=== PATIENT | male | born 1965 | race Caucasian/White ===

== ENCOUNTER 2017-09-02 22:47 | Inpatient (IN) | payer MEDICARE, BC ==
--- NOTE | ~2017-09-02 | HEMODYNAMI ---
PATIENT:MINO CASTRO MEDICAL RECORD: [id number] : 65 LOCATION:[facility] ADMISSION DATE: 09/02/17 Generatedon:09/03/20170:04 Patient name: MINO CASTRO Patient #: [id number] SSN: : 1965 Date of study: 09/02/2017 Page: Of Hemodynamic Procedure Report Patient Data Patient Demographics First Name: MINO Gender: Male Last Name: GLORIA : 1965 Patient #: [id number] Age: 51 year(s) Race: Unknown Additional ID: [id number] Contact details [address]: [address] [place] [address] State: [place] City: [place] Zip code: [address] Admission Admission Data Admission Date: 09/02/2017 Admission Time: 22:47 Admit Source: Emergency department Height (in.): 71 BSA: 1.84 (m2) Height (cm.): 180.34 BMI: 20.22 (kg/m2) Weight (lbs.): 145 Weight (kg.): 65.77 Procedure Procedure Types Cath Procedure Diagnostic Procedure LHC LHC w/Coronaries PCI Procedure AMI-BMS/SAULO Initial Miscellaneous Procedures Moderate Sedation up to 30 minutes Procedure Description Procedure Date Procedure Date: 09/02/2017 Procedure Start Time: 23:28 Procedure End Time: 0:04 Procedure Staff Name Function Milton Leonardo MD Performing Physician Terry Dotson RT Scrub Kurt Weinberg RN Nurse Ria Ellsworth RT Monitor Procedure Data Cath Procedure Fluoroscopy Diagnostic fluoroscopy Total fluoroscopy Time: 5.5 time: 5.5 min min Diagnostic fluoroscopy Total fluoroscopy dose: 679 dose: 679 mGy mGy Contrast Material Contrast Material Type Amount (ml) Isovue 300 100 Entry Location Entry Primary Successful Side Size Upsize Upsize Entry Closure Succes sful Closure Location (Fr) 1 (Fr) 2 (Fr) Remarks Device Remarks Femoral Right 6 Fr Exoseal artery Short Estimated blood loss: 5 ml Diagnostic catheters Device Type Used For End Catheter Placement Cordis 5Fr JL 4.0 Left Coronary Catheter (MP) Angiography Cordis 5Fr 3DRC Catheter Right Coronary (MP) Angiography Cordis 5Fr Pigtail LV Angiography Catheter (MP) Procedure Complications No complications Procedure Medications Medication Administration Route Dosage Oxygen NC 2 l/min Heparin Flush Bag added to field 2 bags (1000units/500ml NS) 0.9% NaCl I.V. 100 ml/hr Fentanyl I.V. 50 mcg Versed I.V. 1 mg Versed I.V. 1 mg Heparin Bolus I.V. 5000 units Fentanyl I.V. 50 mcg Integrilin (Bolus I.V. 6.2 ml 2mg/ml) Integrilin Drip I.V. drip 10.9 ml/hr (75mg/100ml) Integrilin (Bolus wasted 3.8 ml 2mg/ml) Hemodynamics Rest BSA: 1.84 (m2) O2 Consumption: Estimated: 225.77 (ml/min) O2 Consumption indexed : Estimated:122.7 (ml/min/m) Heart Rate: 79 (bpm) Pressure Samples Time Site Value (mmHg) Purpose Heart Use Rate(bpm) 23:51 LV 92/3,17 Snapshot 78 23:51 AO 122/75(98) Pullback 93 23:51 LV 116/14,16 Pullback 93 Gradients Valve Time Site 1 Site 2 Mean SEP/DFP Peak To Heart Use (mmHg) (sec/min) Peak Rate (mmHg) (bpm) Aortic 23:51 LV AO 0 12 0 93 116/14,16 122/75(98) Calculations Valve P-P Mean Valve Index Valve Source Name Gradient Area Flow (cm2) Aortic 0 0 0 0 Snapshots Pre Cath Intra NCS Post Cath Vital Signs Time Heart Resp SPO2 etCO2 NIBP (mmHg) Rhythm Pain Sedation Rate (ipm) (%) (mmHg) Status Level (bpm) 23:21:23 87 20 100 0 157/103(133) NSR 0 (11) 10(A) , No pain 23:25:59 94 20 98 0 149/101(128) NSR 0 (11) 10(A) , No pain 23:30:40 87 18 100 0 152/99(118) NSR 0 (11) 10(A) , No pain 23:35:21 91 17 100 0 147/99(125) NSR 0 (11) 10(A) , No pain 23:40:01 90 23 99 0 148/93(113) NSR 0 (11) 10(A) , No pain 23:44:40 93 21 98 0 139/97(112) NSR 0 (11) 10(A) , No pain 23:49:16 88 22 98 0 130/88(104) NSR 0 (11) 10(A) , No pain 23:53:53 91 20 99 0 132/90(104) NSR 0 (11) 10(A) , No pain 23:58:31 93 23 99 0 125/83(103) NSR 0 (11) 10(A) , No pain 0:03:08 93 20 99 0 126/89(105) NSR 0 (11) 10(A) , No pain Medications Time Medication Route Dose Verified Delivered Reason Notes Effectiveness by by 23:21:10 Oxygen NC 2 Milton Kurt Per physician l/min Malissa Weinberg RN, MD 23:21:21 Heparin Flush added 2 Milton Kurt used for Bag to bags Malissa Weinberg RN procedure (1000units/500ml field NS) 23:22:21 0.9% NaCl I.V. 100 Milton Kurt used for ml/hr Malissa Weinberg RN procedure MD 23:22:32 Fentanyl I.V. 50 Milton Kurt for sedation mcg Malissa Weinberg RN, MD 23:22:40 Versed I.V. 1 mg Milton Kurt for sedation Malissa Weinberg RN, MD 23:30:25 Versed I.V. 1 mg Milton Kurt for sedation Malissa Weinberg RN, MD 23:30:37 Heparin Bolus I.V. 5000 Milton Kurt for units Malissa Weinberg RN anticoagulation 23:32:33 Fentanyl I.V. 50 Milton Kurt for sedation mcg Malissa Weinberg RN, MD 23:35:47 Integrilin I.V. 6.2 Milton Kurt for (Bolus 2mg/ml) ml Malissa Weinberg RN anticoagulation 23:45:08 Integrilin Drip I.V. 10.9 Milton Kurt for (75mg/100ml) drip ml/hr Malissa Weinberg RN anticoagulation 23:51:32 Integrilin wasted 3.8 Milton Kurt for (Bolus 2mg/ml) ml Malissa Weinberg RN anticoagulation Procedure Log Time Note 23:11:35 Informed consent obtained and on chart 23:11:39 Admit Source: Emergency department 23:11:58 Kurt Weinberg RN sent for patient. Start room use. 23:12:02 Time tracking: Call back 23:12:07 Plan of Care:Hemodynamics will remain stable., Cardiac rhythm will remain stable., Comfort level will be maintained., Respiratory function will remain adequate., Patient/ family verbilizes understanding of procedure., Procedure tolerated without complication., Recovers from procedure without complications.. 23:19:56 Patient received from ED to CCL 1 Alert and oriented. Tansferred to table in Supine position. 23:19:57 Vital chart was started 23:19:58 Warm blankets applied, and natalie hugger turned on for patient comfort. 23:19:59 Correct patient and procedure confirmed by team. 23:19:59 ECG and BP/O2 sat monitors applied to patient. 23:20:02 Rhythm: unchanged. 23:20:04 Full Disclosure recording started 23:20:07 H&P Date Dictated: 09/02/2017 Emergent; H&P N/A. 23:20:09 Pre-procedure instructions explained to patient. 23:20:09 Pre-op teaching completed and patient verbalized understanding. 23:20:10 Family in waiting room. 23:20:12 Patient NPO since Midnight. 23:20:19 Is the patient allergic to Iodine/contrast media? No. 23:20:26 Final Timeout: patient, procedure, and site verified with staff and physician. All members of the team are in agreement. 23:20:27 Right groin site verified by team. 23:20:30 Physical assessment completed. ASA score P 2 - A patient with mild systemic disease as per Milton Leonardo MD. 23:20:35 Sedation plan: IV Moderate Sedation Versed, Fentanyl 23:21:10 Oxygen 2 l/min NC was administered by Kurt Weinberg RN; Per physician; 23:21:21 Heparin Flush Bag (1000units/500ml NS) 2 bags added to field was administered by Kurt Weinberg RN; used for procedure; 23:22:21 0.9% NaCl 100 ml/hr I.V. was administered by Kurt Weinberg RN; used for procedure; 23:22:32 Fentanyl 50 mcg I.V. was administered by Kurt Weinberg RN; for sedation; 23:22:40 Versed 1 mg I.V. was administered by Kurt Weinberg RN; for sedation; 23:23:22 Baseline sample Acquired. 23:23:29 Patient diabetic? Yes. 23:23:30 If diabetic: On Metformin? Yes 23:23:32 If on Metformin: Last Dose? 08/31/2017 23:23:35 Is patient on blood thinner?Yes 23:23:37 ACC The patient was administered the following blood thiners within the last 24 hours: ACCPlavix 23:23:41 Previous problem with sedation/anesthesia? No ? 23:23:42 Snore? Yes 23:23:43 Sleep apnea? No 23:23:43 Deviated septum? No 23:23:44 Opens mouth fully? Yes 23:23:45 Sticks out tongue? Yes 23:23:46 Airway obstruction? No ? 23:23:48 Dentures? No ? 23:23:50 Pre procedure: right dorsailis pedis pulse 2+ Normal; easily identifiable; not easily obliterated 23:23:58 Patient pain scale 10/10 Chest. 23:24:04 Lab results completed and on chart. 23:24:07 Right groin area was prepped with chlora-prep and draped in sterile fashion 23:24:08 Alarms reviewed by R. N. 23:24:08 Sharps counted by scrub and verified by R.N. 23:24:13 Acist Syringe opened to sterile field. 23:24:13 Bag Decanter opened to sterile field. 23:24:14 Medline Cath Pack opened to sterile field. 23:24:16 St Jose 260cm J .035 wire opened to sterile field. 23:24:17 Acist Hand Control opened to sterile field. 23:24:17 Acist Manifold opened to sterile field. 23:24:18 Tegaderm 4 x 4 opened to sterile field. 23:24:39 Use device set Multipack Set 23:24:40 Diagnostic Infinity 5Fr Multipack catheter opened to sterile field. 23:28:30 Procedure started. 23:28:32 Local anesthetic to right femoral artery with Lidocaine 2% by Milton Leonardo MD.INITIAL ACCESS ONLY 23:28:34 Access obtained with 4Fr micropunture. 23:28:41 A 6 Fr Short sheath was inserted into the Right Femoral artery 23:29:31 A Cordis 5Fr JL 4.0 Catheter (MP) was advanced over the wire and used for Left Coronary Angiography. 23:30:25 Versed 1 mg I.V. was administered by Kurt Weinberg RN; for sedation; 23:30:37 Heparin Bolus 5000 units I.V. was administered by Kurt Weinberg RN; for anticoagulation; 23:32:06 Patient Height : 71 inches 23:32:08 Patient Weight : 145 lbs 23:32:17 Catheter removed. 23:32:33 Fentanyl 50 mcg I.V. was administered by Kurt Weinberg RN; for sedation; 23:33:04 A Cordis 5Fr 3DRC Catheter (MP) was advanced over the wire and used for Right Coronary Angiography. 23:33:18 Catheter removed. 23:35:02 Copilot Bleedback Control Valve opened to sterile field. 23:35:47 Integrilin (Bolus 2mg/ml) 6.2 ml I.V. was administered by Kurt Weinberg RN; for anticoagulation; 23:36:28 Medtronic Launcher 6Fr AR 1.0 guide catheter opened to sterile field. 23:36:36 6 Fr AR 1.0 guide catheter was inserted over the wire 23:37:09 CHOICE PT ES wire advanced. 23:39:36 Inflation number: 1 A Euphora 2.0 x 20 Balloon was prepped and advanced across the Mid RCA, then inflated to 13 EVERT for 0:14 (min:sec). 23:40:07 Balloon removed over the wire. 23:45:08 Integrilin Drip (75mg/100ml) 10.9 ml/hr I.V. drip was administered by Kurt Weinberg RN; for anticoagulation; 23:46:39 Inflation Number: 2 A Sulaiman RX 4.0 x 30 stent was prepped and advanced across the Mid RCA. The stent was deployed at 12 EVERT for 0:20 (min:sec). 23:49:36 Stent catheter was removed intact over wire. 23:49:37 Wire removed. 23:49:38 Guide catheter removed. 23:51:32 Integrilin (Bolus 2mg/ml) 3.8 ml wasted was administered by Kurt Weinberg RN; for anticoagulation; 23:51:56 A Cordis 5Fr Pigtail Catheter (MP) was advanced over the wire and used for LV Angiography. 23:52:05 Sheath removed intact; hemostasis achieved with Exoseal to the Right Femoral artery. 23:52:08 Procedure ended.(Physican Out) 23:52:42 Fluoroscopy time 05.50 minutes. 23:52:55 Flurop Dose total: 679 23:52:55 Fluoroscopy dose: 679 mGy 23:53:33 Contrast amount:Isovue 300 100ml. 23:53:35 Sharps counted by scrub and verified by R.N. 23:53:36 Insertion/operative site no bleeding no hematoma. 23:53:39 Post-op/insertion site Right Femoral artery dressed using a 4 x 4 and Tegaderm. 23:53:42 Post right femoral artery:stable, clean and dry 23:53:43 Post Procedure Pulses reassessed and unchanged 23:53:46 Post-procedure physical assessment completed. ASA score P 2 - A patient with mild systemic disease as per Milton Leonardo MD. 23:53:48 Post procedure rhythm: unchanged. 23:53:51 Estimated blood loss: 5 ml 23:54:01 Post procedure instruction explained to patient.Patient verbalizes understanding. 23:54:02 Patient needs reinforcement of post procedure teaching. 23:54:11 Procedure type changed to Cath procedure, Diagnostic procedure, LHC, LHC w/Coronaries, PCI procedure, AMI-BMS/SAULO Initial, Miscellaneous Procedures, Moderate Sedation up to 30 minutes 23:54:16 Procedure Complication : No complications 23:54:19 See physician's report for complete and final results. 23:58:07 [place] Sci Choice PT Extra Support 182cm wire opened to sterile field. 23:58:30 Cordis 6Fr Exoseal opened to sterile field. 23:59:15 Cook 4Fr Micropuncture ([id number]) opened to sterile field. 23:59:42 Terumo 6Fr [place] Sheath opened to sterile field. 0:00:10 Procedure and supply charges have been captured, reviewed, submitted and are correct. 0:00:18 Report given to CVICU. 0:03:38 Vital chart was stopped 0:03:43 Patient transfered to CVICU with Bed. 0:04:00 Procedure ended. 0:04:00 Full Disclosure recording stopped 0:04:05 End room use (Document Last) Intervention Summary Intervention Notes Time ActionType Lesion and Equipment Action# Pressure Duration Attributes Used 23:39:36 Inflate Mid RCA Euphora 1 13 00:14 balloon 2.0 x 20 Balloon 23:46:39 Place stent Mid RCA Sulaiman RX 2 12 00:20 4.0 x 30 stent Device Usage Item Name Manufacture Quantity Catalog Number Hospital Part Current Wa nimal Lot# / Charge Number Stock Stock Serial# Code Acist Syringe Acist 1 84414 302953 753843 881176 20 Medical Systems Inc Bag Decanter Microtek 1 2002S 331155 14524 036858 5 Medical Inc. Medline Cath Cardinal 1 [id number] 475377 95729 214774 [address] Jose [address] St Jose 1 482417 816406 996302 348743 30 J .035 wire Acist Hand Acist 1 95944 332321 880602 004381 5 Control Medical Systems Inc Acist Acist 1 72354 503129 092278 108640 5 Odeeo Medical [employer] Inc Tegaderm 4 x 3M 1 1626W 351975 138439 390695 5 4 Diagnostic Cardinal 1 [id number] 902889 63674 071650 30 Infinity 5Fr Health Multipack catheter Cordis 5Fr JL Cardinal 1 400547 5 4.0 Catheter Health (MP) Cordis 5Fr Cardinal 1 468414 5 3D Catheter Health (MP) Copilot Hickey 1 8454885 677567 262199 482269 5 Bleedback Vascular Control Valve Medtronic Medtronic 1 [id number] 457605 29001 138256 1 Launcher 6Fr AR 1.0 guide catheter Euphora 2.0 x Medtronic 1 [id number] 690792 033746 091488 5 [id number] 20 Balloon Sulaiman RX 4.0 x Medtronic 1 [id number] 467211 9217193 804588 5 [id number] 30 stent Cordis 5Fr Cardinal 1 000649 5 Pigtail Health Catheter (MP) [place] Sci Sacramento 1 [id number] 797930 845083 517418 5 Choice PT Scientific Extra Support 182cm wire Cordis 6Fr Cardinal 1 EX600 169928 075202 905228 10 Exoseal Health Cook 4Fr PEPperPRINT Medical 1 [id number] 860943 036512 128129 5 Micropuncture ([id number]) Terumo 6Fr Terumo 1 [id number] 684863 809743 681786 40 [place] Sheath Signature Audit Sanders Stage Time Signature Unsigned Intra-Procedure 09/03/2017 Ria 12:04:19 AM Counts RT(R) Signatures Monitor : Ria Signature : Counts RT Date : Time : [address] [place] [address]
[2017-09-02 22:59] LABS: BASOPHILS 0.2 % (0-2); EOSINOPHILS 0.4 % (0-7); HEMATOCRIT 44.7 % (42.0-54.0); HEMOGLOBIN 15.8 g/dL (13.5-17.5); IMMATURE GRANULOCYTES 0.6 % (0-5); LYMPHOCYTES 12.2 % (15-50); MCH 29.4 pg (26.0-34.0); MCHC 35.3 g/dL (31.0-37.0); MCV 83.2 fL (80.0-100.0); MEAN PLATELET VOLUME 9.4 fL (7.4-10.4); NEUTROPHILS 81.6 % (40-80); PLATELET COUNT 341 10x3/uL (130-400); RBC 5.37 10x6/uL (4.20-6.10); RDW 13.5 % (11.5-14.5); WBC 15.4 10x3/uL (4.8-10.8)
[2017-09-02 23:26] LABS: ALBUMIN 3.4 g/dL (3.4-5.0); ALKALINE PHOSPHATASE 135 U/L (46-116); ALT (SGPT) 20 U/L (10-68); BILIRUBIN - TOTAL 0.41 mg/dL (0.2-1.3); CALCIUM 9.2 mg/dL (8.5-10.1); CARBON DIOXIDE 23.3 mmol/L (21.0-32.0); CHLORIDE - SERUM 97 mmol/L (98-107); CHOL - HDL RATIO 6.4 ratio (2.3-4.9); CHOLESTEROL, TOTAL 255 mg/dL (0-200); CKMB 0.5 U/L (0.0-3.6); CREATINE KINASE 44 UL (21-232); CREATININE - SERUM 1.4 mg/dL (0.6-1.3); HDL CHOLESTEROL 40 mg/dL (32-96); LDL CHOLESTEROL 146 mg/dL (0-100); LDL-HDL RATIO 3.7 ratio (1.5-3.5); PROTEIN - SERUM 7.3 g/dL (6.4-8.2); SODIUM 134 mmol/L (136-145); TRIGLYCERIDE 349 mg/dL (30-200); UREA NITROGEN 12 mg/dL (7-18); eGFR NON AFRICAN AMERICAN 57 mL/min (90-120)
[2017-09-02 23:28] LABS: CALC OSMOLALITY 289 mosm/kg (275-300); GLUCOSE 497 mg/dL (74-106); TROPONIN-I < 0.017 ng/mL (0.000-0.060)
--- NOTE | 2017-09-02 23:58 | NUR ---
REC'D TO ROOM CV 8 FROM [facility] [employer] VIA BED. ICU MONITORS ESTAB. PT AWAKE AND ANSWERING APPROP. OLD LINENS REMOVED, PAJAMA PANTS WERE CUT OFF BY EMS. R GROIN SITE C/D/I. PIV X 2, DSGS C/D/I - SEE FLOWSHEET. CM - SR. 0015 - VSS. AT BS TO HELP WITH ADMISSION QUESTIONS. UPDATE GIVEN AND QUESTIONS ANSWERED.
[2017-09-03] VITALS (24 sets, daily range): BP systolic 95–146; BP diastolic 55–97; BMI 26.2
[2017-09-03] MEDS ORDERED: GLUCOPHAGE500 MG PO (00:30)
[2017-09-03] MEDS ORDERED: ASPIRIN325 MG PO (00:31)
[2017-09-03] MEDS ORDERED: ZESTRIL40 MG PO (00:32)
[2017-09-03] MEDS ORDERED: NEURONTIN 300300 MG PO (00:32)
[2017-09-03] MEDS ORDERED: TOPROL XL25 MG PO (00:33)
[2017-09-03] MEDS ORDERED: ALEVE220 MG PO (00:34)
[2017-09-03] MEDS ORDERED: NEXIUM20 MG PO (00:35)
--- NOTE | 2017-09-03 01:02 | NUR ---
PT C/O CP 06/19 - DR. GUNTER NOTIFIED AND STATUS REPORT GIVEN. NEW ORDERS REC'D. 0110 EKG OBTAINED. PT REPORTS "FEELING BETTER" AFTER SL NITRO AND IV DILAUDID. SEE EMAR. DR. GUNTER UPDATED, NO OTHER ORDERS AT THIS TIME.
--- NOTE | 2017-09-03 01:35 | NUR ---
MOTHER, SISTER AND AT BS. VSS. PT REPORTS "ITS STILL SORE, BUT MUCH BETTER NOW". ALARMS ON. WILL CONT CLOSE MONITORING.
--- NOTE | 2017-09-03 02:00 | NUR ---
RESTING WITH EYES CLOSED, VSS. NO SIGN OF DISTRESS. ALARMS ON.
--- NOTE | 2017-09-03 04:21 | NUR ---
REASSESSMENT PER FLOWSHEET, NO ACUTE CHANGES. PT AWAKENS EASILY, VSS. FRESH WATER PROVIDED. R GROIN SITE C/D/I. DENIES NEEDS. ALARMS ON AND C/L IN REACH.
--- NOTE | 2017-09-03 05:30 | NUR ---
AT BS, UPDATE GIVEN AND QUESTIONS ANSWERED. PT RESTING AT THIS TIME. VSS.
[2017-09-03 06:02] LABS: BASOPHILS 0.2 % (0-2); EOSINOPHILS 0.4 % (0-7); HEMATOCRIT 40.1 % (42.0-54.0); IMMATURE GRANULOCYTES 0.5 % (0-5); LYMPHOCYTES 13.2 % (15-50); MCH 28.9 pg (26.0-34.0); MCHC 34.9 g/dL (31.0-37.0); MCV 82.9 fL (80.0-100.0); MEAN PLATELET VOLUME 9.3 fL (7.4-10.4); MONOCYTES 3.6 % (2-11); NEUTROPHILS 82.1 % (40-80); PLATELET COUNT 305 10x3/uL (130-400); RBC 4.84 10x6/uL (4.20-6.10); RDW 13.8 % (11.5-14.5); WBC 11.9 10x3/uL (4.8-10.8)
--- NOTE | 2017-09-03 07:00 | NUR ---
ASSESSMENT COMPLETE VOICES NO CO AT TIME.
[2017-09-03 07:15] LABS: ALBUMIN 2.8 g/dL (3.4-5.0); ALKALINE PHOSPHATASE 109 U/L (46-116); BILIRUBIN - TOTAL 0.33 mg/dL (0.2-1.3); CALCIUM 8.2 mg/dL (8.5-10.1); CARBON DIOXIDE 24.7 mmol/L (21.0-32.0); CHLORIDE - SERUM 103 mmol/L (98-107); POTASSIUM - SERUM 4.2 mmol/L (3.5-5.1); PROTEIN - SERUM 6.2 g/dL (6.4-8.2); SODIUM 137 mmol/L (136-145); UREA NITROGEN 11 mg/dL (7-18)
[2017-09-03 07:16] LABS: ALT (SGPT) 27 U/L (10-68); CALC OSMOLALITY 282 mosm/kg (275-300); CREATINE KINASE 875 UL (21-232); CREATININE - SERUM 0.8 mg/dL (0.6-1.3); GLUCOSE 271 mg/dL (74-106); eGFR NON AFRICAN AMERICAN > 90 mL/min (90-120)
[2017-09-03 07:17] LABS: CKMB 120.8 U/L (0.0-3.6); TROPONIN-I 24.209 ng/mL (0.000-0.060)
[2017-09-03 11:51] LABS: CREATINE KINASE 900 UL (21-232)
[2017-09-03 11:52] LABS: CKMB 135.6 U/L (0.0-3.6)
--- NOTE | 2017-09-03 12:00 | NUR ---
EATING LUNCH NO CO AT TIME.
--- NOTE | 2017-09-03 13:00 | NUR ---
SLEEPING NO DISTRESS NOTED.
--- NOTE | 2017-09-03 14:00 | NUR ---
UP IN CHAIR VOICE NO CO AT TIME.
--- NOTE | 2017-09-03 17:21 | CN ---
PATIENT NAME:MINO CASTRO MEDICAL RECORD: [id number] : 65 LOCATION:[facility] ADMIT DATE: 09/02/17 ACCOUNT: [id number] CONSULTING PHYSICIAN: GREGORY TRINIDAD MD REFERRING PHYSICIAN: SONJA GUNTER MD DATE OF CONSULTATION: 09/03/2017 HISTORY OF PRESENT ILLNESS: A 51-year-old gentleman was admitted to Dr. Gunter. Consultation has been requested for medical management. The patient has a primary care that is not at this facility. The patient came in by EMS for what he thought was a heart attack. The patient has had cardiac history in the past. He had a bypass surgery done approximately 9 years ago. The patient was in usual state of health whenever he started having substernal chest pain, alerted the EMS. Did not relieve after the home treatment. Ambulance arrived and abnormal EKG was noted. The patient was started on appropriate ACLS protocol, transferred down and was found to have evidence of a STEMI, alert on that aspect. PAST MEDICAL HISTORY: Significant for hypertension, coronary artery disease, nicotine use, hypertension, and diabetes. PAST SURGICAL HISTORY: Includes bilateral foot surgery, 2 hernia surgeries, and a CABG. ALLERGIES: THE PATIENT IS ALLERGIC TO IMITREX, IT DOES CAUSE RASH. MEDICATIONS: Include metformin 500 mg b.i.d. SOCIAL HISTORY: The patient does smoke one-third pack per day. No alcohol use. No illicit drug use. REVIEW OF SYSTEMS: At presently, review of systems indicate slight redness to his right hand, otherwise he is pain free. He is mildly sedated on his medications and is present. PHYSICAL EXAMINATION: VITAL SIGNS: At the time of history and physical as below. GENERAL: He is a well-developed, well-nourished, pleasant 51-year-old white male, in no acute distress. HEENT: Normocephalic, atraumatic. Pupils equal, round, and reactive to light. Extraocular movements intact. Oral cavity and oropharynx otherwise clear. No cervical or pharyngeal adenopathy. No nuchal rigidity. LUNGS: Coarse breath sounds heard bilaterally. HEART: Regular rate and rhythm with a I/ systolic ejection murmur. ABDOMEN: Soft, nontender. Positive bowel sounds. No hepatosplenomegaly. No masses. EXTREMITIES: He does have a midline surgical scar from old CABG. He also has mild erythema and what looks to be an insect sting on his right dorsal hand. RADIOLOGIC DATA: EKG was reviewed and does show evidence of ST elevation indicating of HI whenever he arrived. ASSESSMENT AND PLAN: 1. Myocardial infarction. 2. Coronary artery disease. CONSULT REPORT [id number] MINO CASTRO 3. Type 2 diabetes mellitus. 4. Nicotine use. 5. Hypertension. The patient will be monitored in the ICU. Cardiology will manage his chest pain and coronary artery disease. We will assist with diabetes, blood pressure checks, and laboratory. Thanks for the consultation. TRANSINT:[id number] Voice Confirmation ID: [id number] DOCUMENT ID: [id number] GREGORY TRINIDAD MD at 1721 CC: [id number] DICTATION DATE: 09/03/17 1129 [facility] MANAGER: 09/03/17 1323 ADM IN [facility] [address] [place] [address]
[2017-09-03 17:47] LABS: CREATINE KINASE 749 UL (21-232)
[2017-09-03 18:03] LABS: TROPONIN-I 17.502 ng/mL (0.000-0.060)
[2017-09-03 18:04] LABS: CKMB 100.5 U/L (0.0-3.6)
--- NOTE | 2017-09-03 19:00 | NUR ---
ASSESSMENT COMPLETE PER FLOWSHEET. VOICES NO CO AT TIME.
--- NOTE | 2017-09-03 21:00 | NUR ---
SLEEPING SR UP X 2. VSS. CALL LIGHT WITHIN REACH.
--- NOTE | 2017-09-03 21:00 | NUR ---
BRIT HELD HR 68, BP 104/60. WILL CONTINUE TO MONITOR.
[2017-09-04] VITALS (7 sets, daily range): BP systolic 107–119; BP diastolic 55–79
--- NOTE | 2017-09-04 00:05 | NUR ---
SLEEPING NO DISTRESS NOTED. SR UP X 2.
--- NOTE | 2017-09-04 01:15 | NUR ---
CONTINUES TO SLEEP. RESP EQUAL AND UNLABORED. VSS. CALL LIGHT WITHIN REACH.
[2017-09-04 06:22] LABS: BASOPHILS 0.2 % (0-2); EOSINOPHILS 1.3 % (0-7); HEMATOCRIT 37.8 % (42.0-54.0); HEMOGLOBIN 13.2 g/dL (13.5-17.5); IMMATURE GRANULOCYTES 0.4 % (0-5); LYMPHOCYTES 16.4 % (15-50); MCH 28.9 pg (26.0-34.0); MCHC 34.9 g/dL (31.0-37.0); MCV 82.7 fL (80.0-100.0); MEAN PLATELET VOLUME 9.2 fL (7.4-10.4); MONOCYTES 6.2 % (2-11); NEUTROPHILS 75.5 % (40-80); PLATELET COUNT 261 10x3/uL (130-400); RBC 4.57 10x6/uL (4.20-6.10); RDW 13.7 % (11.5-14.5); WBC 9.9 10x3/uL (4.8-10.8)
[2017-09-04 06:43] LABS: ALBUMIN 2.6 g/dL (3.4-5.0); ALKALINE PHOSPHATASE 94 U/L (46-116); ALT (SGPT) 29 U/L (10-68); BILIRUBIN - TOTAL 0.43 mg/dL (0.2-1.3); CALC OSMOLALITY 280 mosm/kg (275-300); CALCIUM 8.5 mg/dL (8.5-10.1); CARBON DIOXIDE 25.8 mmol/L (21.0-32.0); CHLORIDE - SERUM 103 mmol/L (98-107); CHOL - HDL RATIO 5.1 ratio (2.3-4.9); CHOLESTEROL, TOTAL 180 mg/dL (0-200); CREATININE - SERUM 0.7 mg/dL (0.6-1.3); GLUCOSE 237 mg/dL (74-106); HDL CHOLESTEROL 35 mg/dL (32-96); LDL CHOLESTEROL 104 mg/dL (0-100); PROTEIN - SERUM 5.9 g/dL (6.4-8.2); SODIUM 137 mmol/L (136-145); THYROID STIMULATING HORMONE 2.11 uIU/mL (0.36-3.74); TRIGLYCERIDE 205 mg/dL (30-200); UREA NITROGEN 9 mg/dL (7-18); eGFR NON AFRICAN AMERICAN > 90 mL/min (90-120)
[2017-09-04 06:46] LABS: HEMOGLOBIN A1C 13.8 % (4.8-6.0)
[2017-09-04 06:52] LABS: POTASSIUM - SERUM 3.5 mmol/L (3.5-5.1)
[2017-09-04] MEDS ORDERED: PLAVIX75 MG PO (09:25)
[2017-09-04] MEDS ORDERED: LIPITOR20 MG PO (09:25)
[2017-09-04] MEDS ORDERED: LOPRESSOR25 MG PO (09:26)
[2017-09-04] MEDS ORDERED: ASPIRIN325 MG PO (09:26)
[2017-09-04] MEDS ORDERED: NITROQUICK0.4 MG SL (09:28)
[2017-09-04] MEDS ORDERED: AMOXICILLIN500 M1 PO (09:29)
--- NOTE | 2017-09-04 09:31 | NUR ---
DR. GUNTER IN TO SEE PATIENT AND SPOKE WITH HIM ABOUT DISCHARGE INSTRUCTIONS, NEW ORDERS RECEIVED.
--- NOTE | 2017-09-04 10:23 | NUR ---
Nutrition Consult: Consult received for DM edu. Pt was resting at the time of RD visit. Written info was left in room. Spoke briefly with pt's and encouraged her to call RD with any questions. RD following.
--- NOTE | 2017-09-04 11:00 | NUR ---
DR. TRINIDAD HERE IN TO SEE PATIENT, AND NEW ORDERS RECEIVED.
[2017-09-04] MEDS ORDERED: KEFLEX500 MG PO (11:04)
[2017-09-04] MEDS ORDERED: LOTRISONE CREAM45 GM TOPICAL (11:04)
--- NOTE | 2017-09-04 11:45 | NUR ---
PATIENT'S IV'S DC'D WITH CATH INTACT AND SITE HEALTHY. PRESSURE DRESSING APPLIED.
--- NOTE | 2017-09-04 13:03 | NUR ---
PATIENT DISCHARGED VIA W/C TO POV IN GOOD STABLE CONDITION. DISCHARGE INSTRUCTIONS EXPLAINED TO PATIENT AND HE VERBALIZED UNDERSTANDING. PATIENT TRANSFERED SELF TO W/C THEN VEHICLE.
--- NOTE | 2017-09-29 09:15 | EC ---
PATIENT:MINO CASTRO DATE OF SERVICE: 09/02/17 SEX: M MEDICAL RECORD: [id number] DATE OF : 65 LOCATION:[place] [address] AGE OF PATIENT: 52 ADMISSION DATE: 09/03/17 REFERRING PHYSICIAN: INTERPRETING PHYSICIAN: SONJA GUNTER MD ECHOCARDIOGRAM REPORT ECHO CHARGES 4 ECHO COMPLETE CLINICAL DIAGNOSIS: ECHOCARDIOGRAPHIC MEASUREMENTS (adult normal given) AC root (d.<3.7cm) 3.4 cm LV Septum d (<1.2 cm> 1.7 cm Valve Excursion 2.2 cm LV Septum (systole) 2.3 cm Left Atria (s.<4.0cm> 3.2 cm LVPW d(<1.2cm) 1.7 cm RV (d.<2.3cm) 2.6 cm LVPW (sytole) 2.2 cm LV diastole(<5.6CM) 5.2 cm MV E-F(>70mm/sec) cm LV systole 3.2 cm LVOT Diameter 2.3 cm MV exc.(>10mm) cm Est.ejection fraction (50-75%) % Pericardial Effusion N DOPPLER: LVIT cm/sec A 37.0 cm/sec E 89.0 cm/sec LA cm/sec RVSP 49.0 mmHg LVOT 90.0 cm/sec AOP1/2T m/s Asc. Ao 128 cm/sec RVOT 44.0 cm/sec RA cm/sec PA 95.0 cm/sec AV Gradient Peak 6.5 mmHg AV Mean 3.6 mmHg AV Area 1.4 cm MV Gradient Peak 3.8 mmHg MV Mean 1.3 mmHg MV Area cm COMMENTS: Emissions Testing Technician: Vira RAIOE Dietary Services Director: 4 Dr. Gunter TAPE# PACS DATE OF SERVICE: 09/03/2017 PROCEDURE: Transthoracic echocardiogram. FINDINGS: 1. The left ventricle has taec-pr-riajypzg concentric left ventricular hypertrophy. The patient has inferior lateral area of hypokinesis. Inflow characteristics are normal. The overall ejection fraction is still preserved despite the regional wall motion abnormality. 2. Left atrium is normal size, normal function. ECHOCARDIOGRAM REPORT [id number] MINO CASTRO 3. The mitral valve has mild mitral regurgitation, it is normal structurally. 4. The tricuspid valve has moderate tricuspid regurgitation. The RVSP is mildly elevated at 40 mmHg. 5. The aortic valve is normal. 6. Pulmonic valve has mild to moderate pulmonic insufficiency. 7. Right atrium is normal size and normal function. 8. Right ventricle is normal size and normal function. 9. Pericardium is normal. CONCLUSIONS: The patient has regional wall motion abnormalities, but otherwise preserved LV systolic function. IVC was not well visualized. There are mild elevations in the patient's right ventricular systolic pressures. TRANSINT:[id number] Voice Confirmation ID: [id number] DOCUMENT ID: [id number] 09/10/2017 Edited to correct date of service, dmm. SONJA GUNTER MD at 0915 CC: [id number] DICTATION DATE: 09/04/17939 RESEARCH DEVELOPMENT DIRECTOR: 09/04/17 0959 DIS IN 09/04/17 [facility] [address] [place] [address]
== END 2017-09-04 13:03 | disposition home or self-care (01) | DRG 247 ==
LOC: D.ER 22:47 → D.CVICU 23:58 → D.ER 23:58 → D.CVICU 09-03 00:07 → D.ER 09-03 00:07 → D.CVICU 09-03 00:31 → D.ER 09-03 00:32 → D.CVICU 09-04 13:03
PROVIDERS: Emergency Medicine; Family Medicine; ADMIT Internal Medicine Cardiovascular Disease
PROC: B2111ZZ Fluoroscopy of Multiple Coronary Arteries using Low Osmolar Contrast (ICD-10-PCS; 2017-09-02)
PROC: B2151ZZ Fluoroscopy of Left Heart using Low Osmolar Contrast (ICD-10-PCS; 2017-09-02)
PROC: 027034Z Dilation of Coronary Artery, One Artery with Drug-eluting Intraluminal Device, Percutaneous Approach (ICD-10-PCS; principal; 2017-09-02 23:30)
PROC: 4A023N7 Measurement of Cardiac Sampling and Pressure, Left Heart, Percutaneous Approach (ICD-10-PCS; 2017-09-02 23:30)
DX: I21.19 ST elevation (STEMI) myocardial infarction involving other coronary artery of inferior wall (principal); L03.113 Cellulitis of right upper limb; I25.10 Atherosclerotic heart disease of native coronary artery without angina pectoris; F17.200 Nicotine dependence, unspecified, uncomplicated; E11.9 Type 2 diabetes mellitus without complications; I10 Essential (primary) hypertension; K21.9 Gastro-esophageal reflux disease without esophagitis; K13.0 Diseases of lips; Z95.1 Presence of aortocoronary bypass graft; R41.0 Disorientation, unspecified

== ENCOUNTER → 2017-09-18 16:53 | Outpatient (CLI) | payer MEDICARE, BC ==
[2017-09-03 01:34] VITALS: BMI 26.2
[~2017-09-18 16:53] MED LIST: ALEVE220 MG PO; AMOXICILLIN500 M1 PO; ASPIRIN325 MG PO; FARXIGA5 MG PO; GLUCOPHAGE500 MG PO; KEFLEX500 MG PO; LEVEMIR100 U/M1 SC; LIPITOR20 MG PO; LOPRESSOR25 MG PO; LOTRISONE CREAM45 GM TOPICAL; NEURONTIN 300300 MG PO; NEXIUM20 MG PO; NITROQUICK0.4 MG SL; PLAVIX75 MG PO; TOPROL XL25 MG PO; ZESTRIL40 MG PO
[2017-09-18 18:03] LABS: C-REACTIVE PROTEIN 1.7 mg/dL (0.0-0.9); CHOL - HDL RATIO 3.8 ratio (2.3-4.9); LDL-HDL RATIO 2.1 ratio (1.5-3.5)
== END | disposition home or self-care (01) ==
LOC: D.LABREF 16:53
PROVIDERS: Internal Medicine Cardiovascular Disease
DX: E78.5 Hyperlipidemia, unspecified (principal)

== ENCOUNTER 2017-09-23 06:26 | Outpatient (CLI) | payer MEDICARE, BC ==
[~2017-09-23] VITALS: Ht 180.3 cm; Wt 85.9 kg
--- NOTE | ~2017-09-23 | HEMODYNAMI ---
PATIENT:MINO CASTRO MEDICAL RECORD: [id number] : 65 LOCATION:[facility] ADMISSION DATE: 09/23/17 Generatedon:09/23/20178:57 Patient name: MINO CASTRO Patient #: [id number] SSN: : 1965 Date of study: 09/23/2017 Page: Of Hemodynamic Procedure Report Patient Data Patient Demographics Procedure consent was obtained First Name: MINO Gender: Male Last Name: GLORIA : 1965 Patient #: [id number] Age: 52 year(s) Race: Unknown Additional ID: [id number] Contact details [address]: [address] [place] [address] State: [place] City: [place] Zip code: [address] Past Medical History Allergies Allergen Reaction Date Comments Reported Other allergy 09/23/2017 Sumatriptan Admission Admission Data Admission Date: 09/23/2017 Admission Time: 6:26 Admit Source: Other Lab Results Lab Result Date: 09/23/2017 Lab Result Time: 6:55 Biochemistry Name Units Result Min Max BUN mg/dl 12 --(-*--)-- 7 18 Creatinine mg/dl 0.7 --(*---)-- 0.6 1.3 CBC Name Units Result Min Max Hematocrit % 39.4 -*(----)-- 42 54 Hemoglobin g/dl 13.5 --(*---)-- 13.5 17.5 Procedure Procedure Types Cath Procedure Diagnostic Procedure [facility] w/Coronaries PCI Procedure Coronary Stent Initial Miscellaneous Procedures Moderate Sedation up to 45 minutes Procedure Description Procedure Date Procedure Date: 09/23/2017 Procedure Start Time: 7:55 Procedure End Time: 8:55 Procedure Staff Name Function Milton Leonardo MD Performing Physician Terry Dotson RT Scrub Chiara Ulrich RN Nurse Ninoska Sanchez RT Monitor Burt Reed RT Monitor Procedure Data Cath Procedure Fluoroscopy Diagnostic fluoroscopy Total fluoroscopy Time: time: 26.3 min 26.3 min Diagnostic fluoroscopy Total fluoroscopy dose: dose: 2468 mGy 2468 mGy Contrast Material Contrast Material Type Amount (ml) Isovue 300 210 Entry Location Entry Primary Successful Side Size Upsize Upsize Entry Closure Smith ccessful Closure Location (Fr) 1 (Fr) 2 (Fr) Remarks Device Remarks Radial Right 6 Fr Mechanical artery Short Compression Estimated blood loss: 10 ml Diagnostic catheters Device Type Used For End Catheter Placement Terumo 5Fr Adrian 110cm Procedure catheter Diagnostic Terumo 5Fr Procedure Alcoa 110cm catheter Diagnostic Infinity 5Fr Procedure AR MOD Catheter Diagnostic Infinity 5Fr Procedure RCB catheter Diagnostic Infinity 5Fr Procedure 3DRC catheter Procedure Complications No complications Procedure Medications Medication Administration Route Dosage Oxygen NC 2 l/min Lidocaine 2% added to field 20 Heparin Flush Bag added to field 2 bags (1000units/500ml NS) 0.9% NaCl I.V. 100 ml/hr Versed I.V. 1 mg Fentanyl I.V. 25 mcg Radial Cocktail I.A. 1 syringe (Verapomil 2mg/Nitro 400mcg/Heparin 1500units) Versed I.V. 1 mg Angiomax (bolus) I.V. 13 ml Angiomax Drip I.V. drip 30.1 ml/hr (250mg/50ml NS) (Standard) Nitroglycerin IC/IA I.C. 200 mcg Heparin Flush Bag added to field 1 bags (1000units/500ml NS) Fentanyl I.V. 50 mcg Angiomax Drip 30.1 ml/hr (250mg/50ml NS) (Standard) Fentanyl I.V. 25 mcg Hemodynamics Rest HGB: 13.5 (g/dl) Heart Rate: 82 (bpm) Pressure Samples Time Site Value (mmHg) Purpose Heart Use Rate(bpm) 8:24 LV 111/1,7 Snapshot 85 8:24 LV 111/1,8 EDP 72 8:24 AO 94/65(79) Pullback 84 8:24 LV 106/1,5 Pullback 84 8:24 AO 95/66(80) Snapshot 84 Gradients Valve Time Site 1 Site 2 Mean SEP/DFP Peak To Heart Use (mmHg) (sec/min) Peak Rate (mmHg) (bpm) Aortic 8:24 LV AO 4 4 12 84 106/1,5 94/65(79) Calculations Valve P-P Mean Valve Index Valve Source Name Gradient Area Flow (cm2) Aortic 12 4 12 4 Snapshots Pre Cath Intra NCS Post Cath Vital Signs Time Heart Resp SPO2 etCO2 NIBP (mmHg) Rhythm Pain Status Sedation Rate (ipm) (%) (mmHg) Level (bpm) 7:46:17 75 19 100 0 138/96(117) NSR 0 (11) , No 10(A) pain 7:50:54 66 14 99 34 128/98(117) NSR 0 (11) , No 10(A) pain 7:55:34 86 16 96 28.7 130/90(105) NSR 0 (11) , No 10(A) pain 8:00:13 90 17 95 29.5 105/77(94) NSR 0 (11) , No 9(A) pain 8:04:51 88 17 93 12.8 108/66(89) NSR 0 (11) , No 9(A) pain 8:09:28 85 15 96 24.9 112/76(88) NSR 0 (11) , No 9(A) pain 8:14:08 83 15 97 16.6 112/65(91) NSR 0 (11) , No 9(A) pain 8:18:47 83 16 96 26.5 112/74(87) NSR 0 (11) , No 9(A) pain 8:23:23 82 15 96 26.4 112/75(87) NSR 0 (11) , No 9(A) pain 8:28:04 85 16 97 26.4 105/71(86) NSR 0 (11) , No 9(A) pain 8:32:41 83 15 96 26.5 114/70(94) NSR 0 (11) , No 9(A) pain 8:37:19 81 16 97 25.7 111/73(101) NSR 0 (11) , No 9(A) pain 8:41:58 82 18 97 24.2 119/78(99) NSR 0 (11) , No 10(A) pain 8:46:36 78 16 96 22.6 118/83(96) NSR 4 (11) , 10(A) Distressing 8:51:15 81 23 96 22.7 131/88(108) NSR 0 (11) , No 10(A) pain Medications Time Medication Route Dose Verified Delivered Reason Notes Effectiveness by by 7:45:09 Oxygen NC 2 l/min Milton Buffie used for Malissa Ulrich RN procedure 7:45:17 Lidocaine 2% added to 20ml Milton Milton for local field vial Malissa Leonardo MD anesthetic 7:45:23 Heparin Flush added to 2 bags Milton Milton used for Bag field Malissa Leonardo MD procedure (1000units/500ml NS) 7:45:32 0.9% NaCl I.V. 100 Milton Buffie Per physician ml/hr Malissa Ulrich RN, MD 7:54:02 Versed I.V. 1 mg Milton Buffie for sedation Malissa Ulrich RN, MD 7:54:08 Fentanyl I.V. 25 mcg Milton Buffie for sedation Malissa Ulrich RN, MD 7:58:57 Radial Cocktail I.A. 1 Milton Buffie for (Verapomil syringe Malissa Ulrich RN vasodilation 2mg/Nitro MD 400mcg/Heparin 1500units) 7:59:25 Versed I.V. 1 mg Milton Buffie for sedation Malissa Ulrich RN, MD 8:26:29 Angiomax (bolus) I.V. 13 ml Milton Buffie for Malissa Ulrich RN anticoagulation 8:27:37 Angiomax Drip I.V. drip 30.1 Milton Buffie for (250mg/50ml NS) ml/hr Malissa Ulrich RN anticoagulation (Standard) 8:42:26 Nitroglycerin I.C. 200 mcg Milton Milton for IC/IA Malissa Leonardo MD vasodilation 8:43:52 Heparin Flush added to 1 bags Milton Milton used for Bag field Malissa Leonardo MD procedure (1000units/500ml NS) 8:45:55 Fentanyl I.V. 50 mcg Milton Buffie for chest pain Malissa Ulrich RN, MD 8:50:25 Fentanyl I.V. 25 mcg Milton Buffie for chest pain Malissa Ulrich RN, MD 8:51:54 Angiomax Drip I.V. drip- 30.1 Milton Buffie for (250mg/50ml NS) discontinued ml/hr Malissa Ulrich RN anticoagulation (Standard) Procedure Log Time Note 7:30:35 Chiara Ulrich RN sent for patient. Start room use. 7:35:09 Lab Result : BUN 12 mg/dl 7:35:09 Lab Result : Creatinine 0.7 mg/dl 7:35:09 Lab Result : Hemoglobin 13.5 g/dl 7:35:09 Lab Result : Hematocrit 39.4 % 7:35:13 Admit Source: Other 7:35:32 Diagnostic Cath status Elective 7:35:41 Time tracking: Regular hours 7:35:45 Plan of Care:Hemodynamics will remain stable., Cardiac rhythm will remain stable., Comfort level will be maintained., Respiratory function will remain adequate., Patient/ family verbilizes understanding of procedure., Procedure tolerated without complication., Recovers from procedure without complications.. 7:35:49 Patient received from Pre/Post Procedure Room to CCL 1 Alert and oriented. Tansferred to table in Supine position. 7:35:50 Warm blankets applied, and natalie hugger turned on for patient comfort. 7:35:51 Correct patient and procedure confirmed by team. 7:35:52 Signed procedure consent form obtained from patient. 7:35:53 ECG and BP/O2 sat monitors applied to patient. 7:36:03 H&P Date Dictated: 09/16/2017 Within 30 days and on chart., H&P Addendum completed by physician on day of procedure. (MUST COMPLETE FOR ALL OUTPATIENTS). 7:36:05 Pre-procedure instructions explained to patient. 7:36:05 Pre-op teaching completed and patient verbalized understanding. 7:36:06 Family in waiting room. 7:36:08 Patient NPO since Midnight. 7:36:22 Patient allergic to Other allergySumatriptan 7:44:24 Is the patient allergic to Iodine/contrast media? No. 7:44:25 Is patient on blood thinner?Yes 7:44:28 ACC The patient was administered the following blood thiners within the last 24 hours: ACCPlavix 7:44:29 Patient diabetic? Yes. 7:44:30 If diabetic: On Metformin? Yes 7:44:33 If on Metformin: Last Dose? 09/21/2017 7:44:37 Previous problem with sedation/anesthesia? No ? 7:44:38 Snore? Yes 7:44:39 Sleep apnea? No 7:44:40 Deviated septum? No 7:44:41 Opens mouth fully? Yes 7:44:42 Sticks out tongue? Yes 7:44:44 Airway obstruction? No ? 7:44:46 Dentures? No ? 7:44:52 Modified Miller's test Ulnar < 7 seconds 7:44:53 Patient pain scale 0/10 ?. 7:45:05 IV patent on arrival in left forearm with 0.9% NaCl at [facility]. 7:45:07 Lab results completed and on chart. 7:45:09 Oxygen 2 l/min NC was administered by Chiara Ulrich RN; used for procedure; 7:45:10 Right Radial & Right Groin area was prepped with chlora-prep and draped in sterile fashion 7:45:11 Alarms reviewed by R. N. 7:45:11 Sharps counted by scrub and verified by R.N. 7:45:14 Use device set Radial Dx 7:45:15 MBrace Wrist Support opened to sterile field. 7:45:15 Acist Manifold opened to sterile field. 7:45:17 Lidocaine 2% 20ml vial added to field was administered by Milton Leonardo MD; for local anesthetic; 7:45:17 Acist Hand Control opened to sterile field. 7:45:20 Acist Syringe opened to sterile field. 7:45:20 Medline Cath Pack opened to sterile field. 7:45:21 Bag Decanter opened to sterile field. 7:45:21 Terumo 6Fr Slender Glidesheath opened to sterile field. 7:45:22 St Jose 260cm J .035 wire opened to sterile field. 7:45:22 Tegaderm 4 x 4 opened to sterile field. 7:45:23 Heparin Flush Bag (1000units/500ml NS) 2 bags added to field was administered by Milton Leonardo MD; used for procedure; 7:45:26 Vital chart was started 7:45:28 Baseline sample Acquired. 7:45:32 0.9% NaCl 100 ml/hr I.V. was administered by Chiara Ulrich RN; Per physician; 7:45:32 Rhythm: sinus rhythm 7:50:11 Physician paged 7:52:08 Physician arrived 7:52:08 --------ALL STOP TIME OUT------ 7:52:09 Final Timeout: patient, procedure, and site verified with staff and physician. All members of the team are in agreement. 7:52:10 Right Radial & Right Groin site verified by team. 7:52:13 Physical assessment completed. ASA score P 2 - A patient with mild systemic disease as per Milton Leonardo MD. 7:52:29 Sedation plan: IV Moderate Sedation 7:54:02 Versed 1 mg I.V. was administered by Chiara Ulrich RN; for sedation; 7:54:08 Fentanyl 25 mcg I.V. was administered by Chiara Ulrich RN; for sedation; 7:55:34 Procedure started. 7:55:35 Full Disclosure recording started 7:55:40 Local anesthetic to right radial artery with Lidocaine 2% by Milton Leonardo MD.INITIAL ACCESS ONLY 7:56:13 A 6 Fr Short sheath was inserted into the Right Radial artery 7:58:57 Radial Cocktail (Verapomil 2mg/Nitro 400mcg/Heparin 1500units) 1 syringe I.A. was administered by Chiara Ulrich RN; for vasodilation; 7:59:19 A Terumo 5Fr Adrian 110cm catheter was advanced over the wire and used for Procedure. 7:59:21 Zero performed for pressure channel P1 7:59:25 Versed 1 mg I.V. was administered by Chiraa Ulrich RN; for sedation; 7:59:25 Zero performed for pressure channel P1 8:03:11 Catheter exchanged over wire. 8:03:19 A Diagnostic Terumo 5Fr Alcoa 110cm catheter was advanced over the wire and used for Procedure. 8:05:22 LCA angiography performed. 8:09:25 Catheter exchanged over wire. 8:09:36 A Diagnostic Infinity 5Fr AR MOD Catheter was advanced over the wire and used for Procedure. 8:13:40 Catheter exchanged over wire. 8:13:48 A Diagnostic Infinity 5Fr RCB catheter was advanced over the wire and used for Procedure. 8:17:23 Catheter exchanged over wire. 8:17:36 A Diagnostic Infinity 5Fr 3DRC catheter was advanced over the wire and used for Procedure. 8:19:19 RCA angiography performed. 8:21:10 Catheter removed. 8:21:21 Flocktronic Launcher 6Fr EBU 3.0 guide catheter opened to sterile field. 8:21:27 Hickey BMW Rothbury II J-Tip 190cm wire opened to sterile field. 8:21:32 [employer] BasixCompak Inflation Kit opened to sterile field. 8:21:40 Copilot Bleedback Control Valve opened to sterile field. 8:23:21 6 Fr ebu 3.0 guide catheter was inserted over the wire 8:24:53 LV gram done using CAMPA 8::55 Injector settings: Ml/sec: 3, Volume: 6, 8:25:03 LV hemodynamics recorded. 8:25:16 EF : 50 % 8:26:19 bmw wire advanced. 8:26:29 Angiomax (bolus) 13 ml I.V. was administered by Chiara Ulrich RN; for anticoagulation; 8:27:37 Angiomax Drip (250mg/50ml NS) (Standard) 30.1 ml/hr I.V. drip was administered by Chiara Ulrich RN; for anticoagulation; 8:28:35 Wire advanced across lesion. 8:41:31 Hickey BMW Rothbury II J-Tip 190cm wire opened to sterile field. 8:42:26 Nitroglycerin IC/IA 200 mcg I.C. was administered by Milton Leonardo MD; for vasodilation; 8:43:52 Heparin Flush Bag (1000units/500ml NS) 1 bags added to field was administered by Milton Leonardo MD; used for procedure; 8:45:00 The Sulaiman RX 3.0 x 18 stent was advanced then removed because of failure to cross lesion 8:45:42 Inflation number: 1 A Mozec Rx 3.0 x 20 balloon was prepped and advanced across the Mid LAD, then inflated to 10 EVERT for 0:10 (min:sec). 8:45:55 Fentanyl 50 mcg I.V. was administered by Chiara Ulrich RN; for chest pain; 8:46:03 [facility] BMW wire advanced as khushi wire. 8:49:00 Wire removed. 8:49:37 Inflation Number: 2 A Camargo RX 3.0 x 18 stent was prepped and advanced across the Mid LAD. The stent was deployed at 12 EVERT for 0:10 (min:sec). 8:50:02 Stent catheter was removed intact over wire. 8:50:05 Wire removed. 8:50:25 Fentanyl 25 mcg I.V. was administered by Chiara Ulrich RN; for chest pain; 8:51:36 Terumo TR Band Standard opened to sterile field. 8:51:54 Angiomax Drip (250mg/50ml NS) (Standard) 30.1 ml/hr I.V. drip- discontinued was administered by Chiara Ulrich RN; for anticoagulation; 8:53:44 Sheath removed intact; hemostasis achieved with Mechanical Compression to the Right Radial artery. 8:53:47 Procedure ended.(Physican Out) 8:53:59 Fluoroscopy time 26.30 minutes. 8:54:04 Fluoroscopy dose: 2468 mGy 8:54:04 Flurop Dose total: 2468 8:54:07 Contrast amount:Isovue 300 210ml. 8:54:09 Sharps counted by scrub and verified by R.N. 8:54:11 TR band inflated with 12cc of air. 8:54:13 Insertion/operative site no bleeding no hematoma. 8:54:15 Post Procedure Pulses reassessed and unchanged 8:54:17 Post-procedure physical assessment completed. ASA score P 2 - A patient with mild systemic disease as per Milton Leonardo MD. 8:54:19 Post procedure rhythm: unchanged. 8:54:22 Estimated blood loss: 10 ml 8:54:23 Post procedure instruction explained to patient.Patient verbalizes understanding. 8:54:24 Patient needs reinforcement of post procedure teaching. 8:54:37 Procedure type changed to Cath procedure, Diagnostic procedure, LHC, LHC w/Coronaries, PCI procedure, Coronary Stent Initial, Miscellaneous Procedures, Moderate Sedation up to 45 minutes 8:55:04 Procedure and supply charges have been captured, reviewed, submitted and are correct. 8:55:07 Procedure Complication : No complications 8:55:08 Vital chart was stopped 8:55:09 See physician's report for complete and final results. 8:55:10 Report given to Pre/Post Procedure Room. 8:55:13 Patient transfered to Pre/Post Procedure Room with Stretcher. 8:55:15 Procedure ended. 8:55:15 Full Disclosure recording stopped 8:55:21 End room use (Document Last) Intervention Summary Intervention Notes Time ActionType Lesion and Equipment Action# Pressure Duration Attributes Used 8:45:00 Discard Sulaiman RX Stent 3.0 x 18 stent 8:45:42 Inflate Mid LAD Mozec Rx 1 10 00:10 balloon 3.0 x 20 balloon 8:49:37 Place stent Mid LAD Sulaiman RX 2 12 00:10 3.0 x 18 stent Device Usage Item Name Manufacture Quantity Catalog Hospital Part Current Minim al Lot# / Number Charge Number Stock Stock Serial# Code Micheline Advanced 1 140-0250-00 281003 82956 768562 5 Wrist Vascular Support Dynamics Acist Acist 1 03094 118456 284985 725893 5 Manifold Medical Systems Inc Acist Hand Acist 1 00889 255623 741920 259116 5 Control Medical Systems Inc Acist Acist 1 29825 611561 388472 828659 20 Syringe Medical Systems Inc Medline Cardinal 1 [id number] 079294 62012 357229 5 Cath Pack Health Bag Microtek 1 2002S 706063 78209 729344 5 Decanter Medical Inc. Terumo 6Fr Terumo 1 [id number] 261715 559951 968066 [address] St Jose 1 537225 896963 018799 996812 30 260cm J .035 wire Tegaderm 4 3M 1 1626W 354578 968332 037228 5 x 4 Terumo 5Fr Terumo 1 40-5023 068513 659120 190987 5 Adrian 110cm catheter Diagnostic Terumo 1 40-5013 827686 484197 763932 5 Terumo 5Fr Alcoa 110cm catheter Diagnostic Cardinal 1 [id number] 967492 218108 660846 15 Infinity Health 5Fr AR MOD Catheter Diagnostic Cardinal 1 [id number] 944141 828315 100353 5 Infinity Health 5Fr RCB catheter Diagnostic Cardinal 1 [id number] 131511 583746 930133 9 Infinity Health 5Fr 3DRC catheter Medtronic Medtronic 1 [id number] 421787 56907 395052 0 Launcher 6Fr EBU 3.0 guide catheter Ihckey BMW Hickey 2 [id number] 617684 36825 333494 5 Rothbury Vascular II J-Tip 190cm wire Merit Merit 1 [id number] 205802 502633 104121 15 BasixCompak Medical Inflation Kit Copilot Hickey 1 0387233 825019 087816 306292 5 Bleedback Vascular Control Valve Sulaiman RX 3.0 Medtronic 1 [id number] 303485 5555092 872829 5 [id number] x 18 stent Mozec Rx Cardinal 1 [id number] 356120 59968 892555 5 UMOB06 3.0 x 20 Health balloon Terumo TR Terumo 1 [id number] 541400 305291 976619 40 Band Standard Signature Audit Blanco Stage Time Signature Unsigned Intra-Procedure 09/23/2017 Terry Dotson 8:57:02 AM RT(R) Signatures Monitor : Ninoska Sanchez Signature : RT Date : Time : Monitor : Burt Reed RT Signature : Date : Time : [place] [id number] [place] [address]
[~2017-09-23 06:26] MED LIST changes: -FARXIGA5 MG PO; -LEVEMIR100 U/M1 SC
[2017-09-23] MEDS ORDERED: FARXIGA5 MG PO (06:35)
[2017-09-23] MEDS ORDERED: LEVEMIR100 U/M1 SC (06:36)
[2017-09-23 06:57] VITALS: BP 116/81; Ht 180.3 cm; Wt 85.9 kg
[2017-09-23 07:00] LABS: BASOPHILS 0.3 % (0-2); EOSINOPHILS 3.1 % (0-7); HEMATOCRIT 39.4 % (42.0-54.0); HEMOGLOBIN 13.5 g/dL (13.5-17.5); IMMATURE GRANULOCYTES 0.6 % (0-5); LYMPHOCYTES 23.5 % (15-50); MCH 28.8 pg (26.0-34.0); MCHC 34.3 g/dL (31.0-37.0); MCV 84.2 fL (80.0-100.0); MEAN PLATELET VOLUME 9.5 fL (7.4-10.4); NEUTROPHILS 66.5 % (40-80); PLATELET COUNT 310 10x3/uL (130-400); RBC 4.68 10x6/uL (4.20-6.10); RDW 13.8 % (11.5-14.5); WBC 7.2 10x3/uL (4.8-10.8)
[2017-09-23 07:07] LABS: CALC OSMOLALITY 285 mosm/kg (275-300); CALCIUM 8.6 mg/dL (8.5-10.1); CARBON DIOXIDE 24.8 mmol/L (21.0-32.0); CHLORIDE - SERUM 106 mmol/L (98-107); CREATININE - SERUM 0.7 mg/dL (0.6-1.3); GLUCOSE 218 mg/dL (74-106); POTASSIUM - SERUM 3.7 mmol/L (3.5-5.1); SODIUM 140 mmol/L (136-145); UREA NITROGEN 12 mg/dL (7-18); eGFR NON AFRICAN AMERICAN > 90 mL/min (90-120)
--- NOTE | 2017-09-23 09:20 | NUR ---
0920 PT SLEEPING, AWAKENS EASILY, DENIES ANY C/O. TR BAND CDI, NO BLEEDING OR HEMATOMA NOTED, FINGERS WARM, CAP REFILL IS BRISK. AT BEDSIDE, CALL LIGHT IN REACH. BP 125/80. NSR RATE OF 80.
--- NOTE | 2017-09-23 09:28 | NUR ---
0905 RECEIVED PT FROM RECREATION ATTENDANT. PT IS SLEEPING, AWAKENS EASILY TO VERBAL STIMULI. TR BAND TO RIGHT WRIST IS CDI, NO BLEEDING OR HEMATOMA NOTED. NSR PER MONITOR WITH RATE OF 78, DENIES ANY C/O CHEST PAIN. FINGERS WARM, CAP REFILL IS BRISK. CALL LIGHT IN REACH.
--- NOTE | 2017-09-23 10:16 | NUR ---
0945 PT SLEEPING, AWAKENS EASILY, DENIES ANY C/O. TR BAND CDI, AT BEDSIDE. NSR, VSS. CONTINUE TO MONITOR.
--- NOTE | 2017-09-23 10:17 | NUR ---
1015 PT SLEEPING, AWAKENS EASILY. VSS, AT BEDSIDE, CALL LIGHT IN REACH. TR BAND CDI NO BLEEDING OR HEMATOMA NOTED.
--- NOTE | 2017-09-23 11:00 | NUR ---
1100 NO BLEEDING OR HEMATOMA NOTED AT CATH SITE. FINGERS WARM, PULSE PALPABLE. AT BEDSIDE, VSS. WILL CONTINUE TO MONITOR.
--- NOTE | 2017-09-23 11:45 | NUR ---
1145 PT RESTING WITH EYES CLOSED, VSS. NSR ON MONITOR. TR BAND CDI. AT BEDSIDE, WILL CONTINUE TO MONITOR.
--- NOTE | 2017-09-23 12:49 | NUR ---
1240 5 CC OF AIR REMOVED FROM TR BAND WITH NO BLEEDING OR HEMATOMA NOTED. FINGERS WARM,. CAP REFILL IS BRISK. PT DENIES ANY C/O. SANDWICH AND PO FLUIDS SERVED. AT BEDSIDE, CALL LIGHT IN REACH.
--- NOTE | 2017-09-23 13:07 | NUR ---
OOZING NOTED AT CATH SITE, 5 CC OF AIR REINSTILLED TO TR BAND AND BLEEDING STOPPED. NO HEMATOMA NOTED. PT REQUESTS URINAL AND THIS PROVIDED. PT DENIES ANY C/O AT THIS TIME.
--- NOTE | 2017-09-23 13:35 | NUR ---
1335 3 CC OF AIR REMOVED FROM TR BAND WITH NO BLEEDING OR HEMATOMA NOTED. WILL CONTINUE TO MONITOR. PT DENIES ANY C/O. HAS VOIDED 600 CC CLEAR YELLOW URINE TO URINAL.
--- NOTE | 2017-09-23 14:20 | NUR ---
1420 ALL AIR HAS BEEN REMOVED FROM TR BAND, NO BLEEDING OR HEMATOMA NOTED. FINGERS WARM, CAP REFILL IS BRISK, PULSES PALPABLE. DC INSTRUCTIONS REVIEWED WITH PT AND WHO VERBALIZE UNDERSTANDING. PT DRESSING FOR DC TO HOME.
--- NOTE | 2017-09-23 14:35 | NUR ---
1435 2X2 AND TEGADERM REMAIN CDI TO CATH SITE. WRIST IMMOBILIZER IN PLACE. PT DENIES ANY C/O. PT ESCORTED TO PRIVATE AUTO VIA WC BY NURSE WITH DRIVING HIM HOME. STENT CARD, DC INSTRUCTIONS AND ALL PERSONAL BELONGINGS WITH PT AT DC.
== END 2017-09-23 14:35 | disposition home or self-care (01) ==
LOC: D.CATH 06:26
PROVIDERS: Internal Medicine Cardiovascular Disease
DX: I25.10 Atherosclerotic heart disease of native coronary artery without angina pectoris (principal); R07.9 Chest pain, unspecified; F17.200 Nicotine dependence, unspecified, uncomplicated; Z01.812 Encounter for preprocedural laboratory examination
CPT/HCPCS: 93458; C9600

== ENCOUNTER → 2019-06-23 11:09 | Outpatient (CLI) | payer MEDICARE, BC ==
[2017-09-23 06:57] VITALS: BMI 26.4
[~2019-06-23 11:09] MED LIST changes: +FARXIGA5 MG PO; +LEVEMIR100 U/M1 SC
--- NOTE | 2019-06-27 09:24 | EC ---
PATIENT:MINO CASTRO DATE OF SERVICE: 06/23/19 SEX: M MEDICAL RECORD: [id number] DATE OF : 65 LOCATION:[facility] AGE OF PATIENT: 53 ADMISSION DATE: 06/23/19 REFERRING PHYSICIAN: INTERPRETING PHYSICIAN: ROMMEL ANAYA MD ECHOCARDIOGRAM REPORT ECHO CHARGES 4 ECHO COMPLETE Date: 06/23/19 CLINICAL DIAGNOSIS: CHEST PAIN HX OF CAD/STENTS/CABG ECHOCARDIOGRAPHIC MEASUREMENTS (adult normal given) AC root (d.<3.7cm) 3.6 cm LV Septum d (<1.2 cm> 1.3 cm Valve Excursion 1.4 cm LV Septum (systole) 1.5 cm Left Atria (s.<4.0cm> 4.0 cm LVPW d(<1.2cm) 1.5 cm RV (d.<2.3cm) 4.1 cm LVPW (sytole) 1.6 cm LV diastole(<5.6CM) 5.9 cm MV E-F(>70mm/sec) cm LV systole 4.4 cm LVOT Diameter 2.2 cm MV exc.(>10mm) 2.0 cm Est.ejection fraction (50-75%) % DOPPLER: LVIT cm/sec A 114.0cm/sec E 89.0 cm/sec LA cm/sec RVSP 30 mmHg LVOT 91 cm/sec AOP1/2T m/s Asc. Ao 135 cm/sec RVOT 78 cm/sec RA cm/sec PA 128 cm/sec AV Gradient Peak 7.35 mmHg AV Mean 3.98 mmHg AV Area 3.3 cm MV Gradient Peak 6.17 mmHg MV Mean 2.72 mmHg MV Area cm COMMENTS: Documentation Engineer: 2 CONNIE SANFORD Cvt Tech: 3 Dr. Saunders TAPE# PACS Pericardial Effusion N DATE OF SERVICE: Adequate 2D, color flow, spectral Doppler, and M-mode. Mild LVH. LV internal dimensions are normal. Wall motion normal. EF is greater than or equal to 55%. Aortic valve is tricuspid. No evidence of stenosis by Doppler interrogation. Left atrium is upper limits of normal at 4.0 cm. Mitral valve shows no prolapse. Trace MR. Right-sided chambers grossly normal. Trace TR. TRANSINT:[id number] Voice Confirmation ID: [id number] DOCUMENT ID: [id number] ECHOCARDIOGRAM REPORT [id number] MINO CASTRO GREGORY A MD at 0924 CC: [id number] DICTATION DATE: 06/24/19 1301 REQUIREMENTS MANAGER: 06/24/19 1319 DEP CLI 06/23/19 [place] [address] [place] [address]
== END | disposition home or self-care (01) ==
LOC: D.HCCARDIO 11:09
PROVIDERS: ATTEND Internal Medicine Interventional Cardiology
DX: R07.9 Chest pain, unspecified (principal)

== ENCOUNTER → 2020-05-08 09:56 | Outpatient (CLI) | payer MEDICARE, BC ==
[2017-09-23 06:57] VITALS: BMI 26.4
--- NOTE | 2020-05-10 10:52 | EC ---
PATIENT:IMNO CASTRO DATE OF SERVICE: 05/08/20 SEX: M MEDICAL RECORD: [id number] DATE OF : 65 [facility] AGE OF PATIENT: 54 ADMISSION DATE: 05/08/20 REFERRING PHYSICIAN: INTERPRETING PHYSICIAN: ROMMEL ANAYA MD ECHOCARDIOGRAM REPORT ECHO CHARGES 4 ECHO COMPLETE Date: 05/08/20 CLINICAL DIAGNOSIS: CAD/MURMUR/ANGINA ECHOCARDIOGRAPHIC MEASUREMENTS (adult normal given) AC root (d.<3.7cm) 4.5 cm LV Septum d (<1.2 cm> 1.4 cm Valve Excursion 2.2 cm LV Septum (systole) 1.7 cm Left Atria (s.<4.0cm> 3.6 cm LVPW d(<1.2cm) 1.6 cm RV (d.<2.3cm) 3.8 cm LVPW (sytole) 1.7 cm LV diastole(<5.6CM) 5.5 cm MV E-F(>70mm/sec) cm LV systole 3.8 cm LVOT Diameter 2.1 cm MV exc.(>10mm) 1.7 cm Est.ejection fraction (50-75%) % DOPPLER: LVIT cm/sec A 82.0 cm/sec E 67.0 cm/sec LA cm/sec RVSP 21 mmHg LVOT 86 cm/sec AOP1/2T m/s Asc. Ao 108 cm/sec RVOT 92 cm/sec RA cm/sec PA 129 cm/sec AV Gradient Peak 4.68 mmHg AV Mean 2.57 mmHg AV Area 3.6 cm MV Gradient Peak 3.37 mmHg MV Mean 1.59 mmHg MV Area cm COMMENTS: Metaphysics Teacher: 2 CONNIE SANFORD Attendant Arcade: 3 Dr. Saunders TAPE# PACS Pericardial Effusion N DATE OF SERVICE: Adequate 2D, color flow imaging, spectral Doppler, and M-Mode. LVH is present. LV internal dimension is normal. Wall motion is normal . EF greater than or equal to 55%. Aortic valve is tricuspid. No evidence of stenosis by Doppler interrogation. Left atrium is normal at 3.6 cm. Mitral valve shows no prolapse. Trace MR. Right-sided chambers are grossly normal. Trace TR. ECHOCARDIOGRAM REPORT [id number] MINO CASTRO TRANSINT:[id number] Voice Confirmation ID: [id number] DOCUMENT ID: [id number] ROMMEL ANAYA MD at 1052 CC: [id number] DICTATION DATE: 05/09/20 1451 BI CONSULTANT: 05/10/20 0057 DEP CLI 05/08/20 [place] [id number] [place] [id number]
== END | disposition home or self-care (01) ==
LOC: D.HCCECHO 09:56
PROVIDERS: ATTEND Internal Medicine Cardiovascular Disease
DX: I20.9 Angina pectoris, unspecified (principal); I25.10 Atherosclerotic heart disease of native coronary artery without angina pectoris

== ENCOUNTER 2020-05-31 07:35 | Outpatient (CLI) | payer MEDICARE, BC ==
[~2020-05-31] VITALS: Ht 177.8 cm; Wt 98.0 kg
--- NOTE | ~2020-05-31 | HEMODYNAMI ---
PATIENT:MINO CASTRO MEDICAL RECORD: [id number] : 65 LOCATION:[facility] ADMISSION DATE: 05/31/20 Generatedon:05/31/202011:30 Patient name: MINO CASTRO Patient #: [id number] SSN: [id number] : 1965 Date of study: 05/31/2020 Page: Of Hemodynamic Procedure Report Patient Data Patient Demographics Procedure consent was obtained First Name: MINO Gender: Male Last Name: GLORIA : 1965 Patient #: [id number] Age: 54 year(s) Race: SSN: [id number] Additional ID: [id number] Contact details [address]: [address] [place] [address] State: [place] City: [place] Zip code: [address] Past Medical History Allergies Allergen Reaction Date Comments Reported Other allergy 09/23/2017 Sumatriptan Other allergy 05/31/2020 IMITREX Admission Admission Data Admission Date: 05/31/2020 Admission Time: 7:35 Arrival Date: 05/31/2020 Arrival Time: 0:00 Admit Source: Other Insurance Payor: Medicare [facility] #: [id number] Height (in.): 70 BSA: 2.16 (m2) Height (cm.): 177.8 BMI: 31 (kg/m2) Weight (lbs.): 216.05 Weight (kg.): 98 Lab Results Lab Result Date: 05/31/2020 Lab Result Time: 0:00 Biochemistry Name Units Result Min Max BUN mg/dl 26 --(----)-* 7 18 Creatinine mg/dl 1.2 --(---*)-- 0.6 1.3 eGFR ml/min 67.33691 *-(----)-- 90 120 NONAFRICAN CBC Name Units Result Min Max Hematocrit % 35.9 *-(----)-- 42 54 Hemoglobin g/dl 12 *-(----)-- 13.5 17.5 Procedure Procedure Types Cath Procedure Diagnostic Procedure [facility] w/Coronaries Sedation Charges Moderate Sedation up to 15 minutes PCI Procedure Coronary Stent Coronary Stent Initial Hemochron ACT Test Procedure Description Procedure Date Procedure Date: 05/31/2020 Procedure Start Time: 11:03 Procedure End Time: 11:28 Procedure Staff Name Function Mario Ruiz MD Performing Physician Sandie Valenzuela RT Monitor Eliana Odonnell RT Scrub Chiara Ulrich RN Nurse Procedure Data Cath Procedure Fluoroscopy Diagnostic fluoroscopy Total fluoroscopy Time: 2.8 time: 2.8 min min Diagnostic fluoroscopy Total fluoroscopy dose: 568 dose: 568 mGy mGy Contrast Material Contrast Material Type Amount (ml) Isovue 370 96 Entry Location Entry Primary Successful Side Size Upsize Upsize Entry Closure Smith ccessful Closure Location (Fr) 1 (Fr) 2 (Fr) Remarks Device Remarks Radial Right 6 Fr Mechanical artery Short Compression Femoral Right 5 Fr 6 Fr Exoseal artery Short Estimated blood loss: 10 ml Diagnostic catheters Device Type Used For End Catheter Placement DIAGNOSTIC [place] 110cm 5 Procedure Fr catheter ([id number]) MULTIPACK JL 4.0 5Fr Procedure catheter MULTIPACK 3DRC 5Fr Procedure catheter MULTIPACK Pigtail 5 Fr Procedure catheter Procedure Complications No complications Procedure Medications Medication Administration Route Dosage Oxygen etCO2 Nasal cannula 2 l/min Lidocaine 2% added to field 20 Heparin Flush Bag added to field 2 bags (1000units/500ml NS) 0.9% NaCl I.V. 100 ml/hr Radial Cocktail added to field 1 syringe (Verapamil 2mg/Nitro 400mcg/Heparin 1500units) Versed I.V. 2 mg Fentanyl I.V. 50 mcg Heparin Bolus I.V. 5000 units Integrilin (Bolus I.V. 9 ml 2mg/ml) Versed I.V. 1 mg Fentanyl I.V. 50 mcg Plavix P.O. 600 mg Hemodynamics Rest BSA: 2.16 (m2) HGB: 12 (g/dl) O2 Consumption: Estimated: 262.02 (ml/min) O2 Cons umption indexed: Estimated:121.31 (ml/min/m) Heart Rate: 77 (bpm) Pressure Samples Time Site Value (mmHg) Purpose Heart Use Rate(bpm) 11:12 LV 104/17,21 Snapshot 73 Snapshots Pre Cath Intra NCS Post Cath Vital Signs Time Heart Resp SPO2 etCO2 NIBP (mmHg) Rhythm Pain Sedation Rate (ipm) (%) (mmHg) Status Level (bpm) 10:55:25 75 13 99 9.7 147/103(117) NSR 0 (11) 10(A) , No pain 10:59:41 74 22 97 21.8 140/97(127) NSR 0 (11) 10(A) , No pain 11:03:55 76 23 93 33.8 136/103(114) NSR 0 (11) 10(A) , No pain 11:08:13 74 20 94 31.5 127/81(117) NSR 0 (11) 9(A) , No pain 11:12:19 72 11 94 30.8 112/82(99) NSR 0 (11) 9(A) , No pain 11:16:29 73 26 96 30 121/77(108) NSR 0 (11) 9(A) , No pain 11:20:36 73 19 96 30 123/79(104) NSR 0 (11) 9(A) , No pain 11:24:46 73 14 96 30 131/81(105) NSR 0 (11) 10(A) , No pain 11:29:00 72 13 30 119/85(112) NSR 0 (11) 10(A) , No pain Medications Time Medication Route Dose Verified Delivered Reason Not es Effectiveness by by 10:54:35 Oxygen etCO2 2 l/min Mario Guadarrama used for Nasal St Son Ulrich RN procedure cannula 10:54:43 Lidocaine 2% added 20ml Mario Martin for local to vial [facility] anesthetic field MD QUIÑONES 10:54:48 Heparin Flush added 2 bags Mario Martin used for Bag to [facility] procedure (1000units/500ml field MD QUIÑONES NS) 10:55:24 0.9% NaCl I.V. 100 Mario Chiara Per physician ml/hr [facility] Son Ulrich RN, MD 10:55:38 Radial Cocktail added 1 Mario Mario for (Verapamil to syringe [facility] vasodilation 2mg/Nitro field MD QUIÑONES 400mcg/Heparin 1500units) 11:00:17 Versed I.V. 2 mg Mario [place]ie for sedation [facility] Son Ulrich RN, MD 11:00:24 Fentanyl I.V. 50 mcg Mario Guadarrama for sedation St Son Ulrich RN, MD 11:08:28 Versed I.V. 1 mg Mario Buffie for sedation St Son Ulrich RN, MD 11:08:31 Fentanyl I.V. 50 mcg Mario Guadarrama for sedation St Son Ulrich RN, MD 11:14:13 Heparin Bolus I.V. 5000 Mario Guadarrama for khoi ified units St Son Ulrich RN anticoagulation with dr MD martinez 11:17:20 Integrilin I.V. 9 ml Mario vieira Was shmuel 1 (Bolus 2mg/ml) St Son Ulrich RN antiplatelet ml of MD therapy vial 11:24:15 Plavix P.O. 600 mg Mario Guad[address]ama for [facility] Son Ulrich RN antiplatelet MD therapy Procedure Log Time Note 10:34:40 Diagnostic Cath Status : Elective 10:35:01 Chiara Ulrich RN sent for patient. Start room use. 10:35:02 Time tracking: Regular hours (M-F 7:00 - 5:00) 10:35:06 Plan of Care:Hemodynamics will remain stable., Cardiac rhythm will remain stable., Comfort level will be maintained., Respiratory function will remain adequate., Patient/ family verbilizes understanding of procedure., Procedure tolerated without complication., Recovers from procedure without complications.. 10:42:42 Arrival Date: 05/31/2020 12:00:00 AM 10:42:43 Admit Source: Other 10:42:46 Patient Height : 70 inches 10:42:50 Patient Weight : 216.05 lbs 10:42:56 Insurance Payor : Medicare 10:43:24 Informed consent obtained and on chart 10:46:40 Lab Result : eGFR NONAFRICAN 67.18070 ml/min 10:46:40 Lab Result : Creatinine 1.2 mg/dl 10:46:40 Lab Result : BUN 26 mg/dl 10:46:40 Lab Result : Hematocrit 35.9 % 10:46:40 Lab Result : Hemoglobin 12 g/dl 10:47:18 Patient received from Pre/Post Procedure Room to CCL 1 Alert and oriented. Tansferred to table in Supine position. 10:47:19 Warm blankets applied, and natalie hugger turned on for patient comfort. 10:47:20 Correct patient and procedure confirmed by team. 10:47:20 ECG and BP/O2 sat monitors applied to patient. 10:47:28 H&P Date Dictated: 05/31/2020 New H&P dictated by physician.. 10:47:28 Pre-procedure instructions explained to patient. 10:47:29 Pre-op teaching completed and patient verbalized understanding. 10:47:30 Family in waiting room. 10:47:33 Patient NPO since Midnight. 10:47:41 Patient allergic to Other allergyIMITREX 10:47:47 Alarms reviewed by R. N. 10:47:48 Sharps counted by scrub and verified by R.N. 10:47:51 Lab results completed and on chart. 10:48:00 IV patent on arrival in left antecubital with 0.9% NaCl at [facility]. 10:48:03 Patient pain scale 0/10 ?. 10:54:12 Vital chart was started 10:54:13 Full Disclosure recording started 10:54:17 Is the patient allergic to Iodine/contrast media? No. 10:54:18 Was the patient premedicated? N/A 10:54:27 Patient diabetic? Yes. 10:54:34 If diabetic: On Metformin? Yes 10:54:35 Oxygen 2 l/min etCO2 Nasal cannula was administered by Chiara Ulrich RN; used for procedure; Verbal order read back and verified. 10:54:39 If on Metformin: Last Dose? 05/28/2020 10:54:41 ----Pre-sedation anethsthesia assessment.---- 10:54:43 Lidocaine 2% 20ml vial added to field was administered by Mario Ruiz MD; for local anesthetic; Verbal order read back and verified. 10:54:46 Previous problem with sedation/anesthesia? No ? 10:54:46 Snore? Yes 10:54:48 Heparin Flush Bag (1000units/500ml NS) 2 bags added to field was administered by Mario Ruiz MD; used for procedure; Verbal order read back and verified. 10:54:48 Sleep apnea? Unknown 10:54:50 Deviated septum? No 10:54:51 Opens mouth fully? Yes 10:54:52 Sticks out tongue? Yes 10:54:53 Airway obstruction? No ? 10:54:56 Dentures? No ? 10:54:59 Pre procedure: right dorsailis pedis pulse 2+ Normal; easily identifiable; not easily obliterated 10:55:01 Modified Miller's test Ulnar < 7 seconds 10:55:08 Stress Test: no; N/A ? 10:55:12 Right Radial & Right Groin area was prepped with chlora-prep and draped in sterile fashion 10:55:19 Baseline sample Acquired. 10:55:22 Rhythm: sinus rhythm 10:55:24 0.9% NaCl 100 ml/hr I.V. was administered by Chiara Ulrich RN; Per physician; Verbal order read back and verified. 10:55:38 Radial Cocktail (Verapamil 2mg/Nitro 400mcg/Heparin 1500units) 1 syringe added to field was administered by Mario Ruiz MD; for vasodilation; Verbal order read back and verified. 10:58:09 Risk of Mortality: 0.1 10:58:13 Risk of blood transfusion: 1.6 10:58:16 Risk of KAVIN: 0.3 10:58:21 Use device set Radial Dx or PCI 10:58:22 ACIST Syringe (93899) opened to sterile field. 10:58:23 Medline Cath Pack ([id number]) opened to sterile field. 10:58:23 Bag Decanter (2002S) opened to sterile field. 10:58:24 ACIST Hand Control (64941) opened to sterile field. 10:58:24 ACIST Manifold (26178) opened to sterile field. 10:58:25 MBrace Wrist Support (068885160) opened to sterile field. 10:58:27 EMERALD Guide Wire (670-445) opened to sterile field. 10:58:28 SHEATH 6FR RAIN (9148929) opened to sterile field. 10:58:34 --------ALL STOP TIME OUT------ 10:58:35 Final Timeout: patient, procedure, and site verified with staff and physician. All members of the team are in agreement. 10:58:37 Right Radial & Right Groin site verified by team. 10:58:41 Fire Safety Assessment: A--An alcohol-based skin anteseptic being used preoperatively., C--Open oxygen or nitrous oxide is being used., D--An ESU, laser, or fiber-optic light is being used. 10:58:44 Physical assessment completed. ASA score P 2 - A patient with mild systemic disease as per Mario Ruiz MD. 10:58:48 2) 60-89 Mildly reduced kidney function, and other findings (as for stage 1) point to kidney disease. 10:58:51 Maximum allowable contrast dose (3.7 X eGFR X 0.75)186 ml. 10:58:56 Sedation plan: IV Moderate Sedation Medication:Versed, Fentanyl 11:00:17 Versed 2 mg I.V. was administered by Chiara Ulrich RN; for sedation; Verbal order read back and verified. 11:00:24 Fentanyl 50 mcg I.V. was administered by Chiara Ulrich RN; for sedation; Verbal order read back and verified. 11:03:25 Procedure started. 11:03:29 Local anesthetic to right radial artery with Lidocaine 2% by Mario Ruiz MD.INITIAL ACCESS ONLY 11:04:56 A 6 Fr Short sheath was inserted into the Right Radial artery 11:05:12 A DIAGNOSTIC [place] 110cm 5 Fr catheter (043384) was advanced over the wire and used for Procedure. 11:06:47 UNABEL TO USE RIGHT RADILA DUE TO BYPASS NOTICED PROCEEDING TO GROIN. 11:06:52 Local anesthetic to right femoral artery with Lidocaine 2% by Mario Ruiz MD.ADDITIONAL ACCESS 11:07:07 Use device set Femoral Dx 11:07:12 DIAGNOSTIC Multipack 5Fr catheter set (YE2025) opened to sterile field. 11:07:40 SHEATH 5FR [place] (YFD930) opened to sterile field. 11:07:48 A 5 Fr sheath was inserted into the Right Femoral artery 11:08:02 A MULTIPACK JL 4.0 5Fr catheter was advanced over the wire and used for Procedure. 11:08:28 Versed 1 mg I.V. was administered by Chiara Ulrich RN; for sedation; Verbal order read back and verified. 11:08:31 Fentanyl 50 mcg I.V. was administered by Chiraa Ulrich RN; for sedation; Verbal order read back and verified. 11:08:36 LCA angiography performed. 11:08:40 Injector settings: Ml/sec: 3, Volume: 6, 11:09:35 Catheter removed. 11:09:41 A MULTIPACK 3DRC 5Fr catheter was advanced over the wire and used for Procedure. 11:10:14 RCA angiography performed. 11:10:39 Injector settings: Ml/sec: 3, Volume: 6, 11:11:00 ACCDominant side:Right 11:11:04 Catheter removed. 11:11:21 A MULTIPACK Pigtail 5 Fr catheter was advanced over the wire and used for Procedure. 11:12:05 LV gram done using CAMPA 11:12:12 Injector settings: Ml/sec: 5, Volume: 15, 11:12:16 LV hemodynamics recorded. 11:12:25 EF : 50 % 11:13:19 Proceeding to intervention. 11:13:31 Use device set FLEMING PCI 11:13:33 SHEATH 6FR [place] (YXS289) opened to sterile field. 11:13:36 GUIDE 6FR HS I catheter (LA6HSI) opened to sterile field. 11:13:39 WHISPER 300cm guide wire ([id number]) opened to sterile field. 11:13:40 INFLATOR Merit BasixCompak (YI0055) opened to sterile field. 11:14:03 Sheath upsized to a 6 Fr Short. 11:14:13 Heparin Bolus 5000 units I.V. was administered by Chiara Ulrich RN; for anticoagulation; verified with dr martinez Verbal order read back and verified. 11:14:21 6 Fr HS 1 guide catheter was inserted over the wire 11:14:47 Pre PCI Site: [place] dRCA has 80% stenosis. 11:15:53 WHISPER 300 wire advanced. 11:17:20 Integrilin (Bolus 2mg/ml) 9 ml I.V. was administered by Chiara Ulrich RN; for antiplatelet therapy; Wasted 1 ml of vial Verbal order read back and verified. 11:18:12 Place stent Inflation Number: 1 A ISREAL OTW 3.5 x 08 stent ([id number]) was prepped and advanced across the Dist RCA 80. The stent was deployed at 14 EVERT for 0:00 (min:sec) . 11:18:48 Stent catheter was removed intact over wire. 11:18:49 Balloon removed over the wire. 11:18:49 Wire removed. 11:20:09 EXOSEAL 6Fr (EX600) opened to sterile field. 11:20:39 Sheath removed intact; hemostasis achieved with Exoseal to the Right Femoral artery. 11:20:44 Sheath removed intact; hemostasis achieved with Mechanical Compression to the Right Radial artery. 11:20:46 Procedure ended.(Physican Out) 11:22:19 Fluoroscopy time 02.80 minutes. 11:22:23 Flurop Dose total: 568 11:22:23 Fluoroscopy dose: 568 mGy 11:22:29 Dose Area Product 98738 mGy/cm. 11:22:34 Contrast amount:Isovue 370 96ml. 11:22:37 Maximum allowable dose exceeded? No. 11:22:38 Sharps counted by scrub and verified by R.N. 11:22:46 [place] band inflated with 11cc of air. 11:22:53 Post-op/insertion site Right Femoral artery dressed using a 4 x 4 and Tegaderm. 11:22:59 Post right femoral artery:stable, soft, clean and dry 11:23:00 ACT drawn and resulted at 194 seconds. (normal therapeutic range 180-240 seconds). 11:23:06 Post Procedure Pulses reassessed and unchanged 11:23:09 Post procedure: right dorsailis pedis pulse 2+ Normal; easily identifiable; not easily obliterated. 11:23:36 Post-procedure physical assessment completed. ASA score P 2 - A patient with mild systemic disease as per Mario Ruiz MD. 11:23:38 Post procedure rhythm: unchanged. 11:23:41 Estimated blood loss: 10 ml 11:23:43 Post procedure instruction explained to patient.Patient verbalizes understanding. 11:23:44 Patient needs reinforcement of post procedure teaching. 11:24:01 Procedure type changed to Cath procedure, Diagnostic procedure, LHC, C w/Coronaries, Sedation Charges, Moderate Sedation up to 15 minutes, PCI procedure, Coronary Stent, Coronary Stent Initial, Hemochron ACT Test 11:24:15 Plavix 600 mg P.O. was administered by Chiara Ulrich RN; for antiplatelet therapy; Verbal order read back and verified. 11:24:17 Procedure and supply charges have been captured, reviewed, submitted and are correct. 11:27:34 Procedure Complication : No complications 11:28:30 Vital chart was stopped 11:28:32 [facility] Findings: MVD- PCI performed (see procedure note) 11:28:33 Operative report dictated upon procedure completion. 11:28:34 See physician's report for complete and final results. 11:28:35 Report given to Pre/Post Procedure Room. 11:28:39 Patient transfered to Pre/Post Procedure Room with Stretcher. 11::41 Procedure ended. 11::41 Full Disclosure recording stopped 11:29:08 ACC-PCI Only Patient was given prescriptions, or instructed by Mario Ruiz MD to start/continue the following medications upon discharge: Plavix 11:29:09 End room use (Document Last) 11:29:19 End room use (Document Last) 11:29:51 End room use (Document Last) Intervention Summary Intervention Notes Time ActionType Lesion and Equipment Action# Pressure Duration Attributes Used 11:18:12 Place stent Dist RCA ISREAL OTW 3.5 1 14 00:00 x 08 stent ([id number]) Device Usage Item Name Manufacture Quantity Catalog Hospital Part Current Mini mal Lot# / Number Charge Number Stock Stock Serial# Code ACIST Syringe Acist 1 21077 751328 186933 334229 20 (95009) Medical Systems Inc Medline Cath Medline 1 [id number] 222266 35883 777080 5 Pack ([id number]) Bag Decanter Microtek 1 2001S 068751 17379 556524 5 (2001S) Medical Inc. ACIST Hand Acist 1 55553 498086 317371 292679 5 Control Medical (41075) Systems Inc ACIST Acist 1 70013 319843 989575 054729 5 Manifold Medical (93340) Systems Inc MBrace Wrist Advanced 1 140-0250-00 959658 63458 983155 5 Support Vascular (400998183) Dynamics EMERALD Guide Cardinal 1 502-455 951733 323488 964622 5 Wire Health (502455) SHEATH 6FR Cardinal 1 6296522 955769 4247563 369423 5 [facility] (7514442) DIAGNOSTIC Terumo 1 40-5013 755852 724830 254404 5 [place] 110cm 5 Fr catheter (867533) DIAGNOSTIC Cardinal 1 TM0285 783845 22999 425435 30 Multipack 5Fr Health catheter set (XX3460) MULTIPACK JL Cardinal 1 537039 5 4.0 5Fr Health catheter MULTIPACK Cardinal 1 455822 5 3DRC 5Fr Health catheter MULTIPACK Cardinal 1 881778 5 Pigtail 5 Fr Health catheter SHEATH 6FR Terumo 1 QRS574 188456 718487 473068 40 [place] (ZHF669) GUIDE 6FR HS Medtronic 1 LA6HSI 785006 35747 252076 1 I catheter (LA6HSI) WHISPER 300cm [place]key 1 [id number] 796584 760751 304793 5 guide wire Vascular (8032746LN) INFLATOR Merit 1 BZ3323 853534 625142 706049 15 [facility] Medical BasixCompak (ZF2992) ISREAL OTW 3.5 Medtronic 1 [id number] 963608 3222442 313284 5 [id number] x 08 stent ([id number]) EXOSEAL 6Fr Cardinal 1 EX600 008494 126144 348455 10 (EX600) Health SHEATH 5FR Terumo 1 TST268 561906 466763 291090 5 [place] (WKM727) Signature Audit [place] Stage Time Signature Unsigned Intra-Procedure 05/31/2020 Sandie Valenzuela 11:29:19 AM RT(R) Intra-Procedure 05/31/2020 Chiara Ulrich RN 11:29:51 AM Intra-Procedure 05/31/2020 Mario العلي 11:30:05 AM Son QUIÑONES [id number] [place] [address]
[2020-05-31] MEDS ORDERED: NEXIUM20 MG PO (08:08)
[2020-05-31] MEDS ORDERED: LASIX80 MG PO (08:09)
[2020-05-31] MEDS ORDERED: TRIAMTERENE-HC1 EAC3 PO (08:09)
[2020-05-31] MEDS ORDERED: NEURONTIN600 MG PO (08:10)
[2020-05-31] MEDS ORDERED: GLUCOPHAGE500 MG PO (08:10)
[2020-05-31] MEDS ORDERED: K-TAB10 MEQ PO (08:11)
[2020-05-31] MEDS ORDERED: TOPROL XL50 MG PO (08:11)
[2020-05-31] MEDS ORDERED: LEVEMIR IN100 UNITS/ SC (08:16)
[2020-05-31] MEDS ORDERED: HUMALOG 30100 UNITS/ SC (08:17)
[2020-05-31 08:19] VITALS: BP 138/84; Ht 177.8 cm; Wt 98.0 kg
[2020-05-31 08:42] LABS: BASOPHILS 0.2 % (0-2); EOSINOPHILS 2.5 % (0-7); HEMATOCRIT 35.9 % (42.0-54.0); IMMATURE GRANULOCYTES 0.2 % (0-5); LYMPHOCYTES 21.4 % (15-50); MCH 29.2 pg (26.0-34.0); MCHC 33.4 g/dL (31.0-37.0); MCV 87.3 fL (80.0-100.0); MEAN PLATELET VOLUME 9.5 fL (7.4-10.4); MONOCYTES 6.4 % (2-11); NEUTROPHILS 69.3 % (40-80); PLATELET COUNT 310 10x3/uL (130-400); RBC 4.11 10x6/uL (4.20-6.10); WBC 8.6 10x3/uL (4.8-10.8)
[2020-05-31 09:17] LABS: ANION GAP 14.4 mmol/L (8-16); CALCIUM 9.2 mg/dL (8.5-10.1); CARBON DIOXIDE 24.6 mmol/L (21.0-32.0); CREATININE - SERUM 1.2 mg/dL (0.6-1.3); LDL-HDL RATIO 2.8 ratio (1.5-3.5)
[2020-05-31] MEDS ORDERED: BAYER CHEWABLE81 MG PO (11:39)
[2020-05-31] MEDS ORDERED: PLAVIX75 MG PO (11:39)
--- NOTE | 2020-05-31 11:40 | NUR ---
PT ARRIVED BY STRETCHER. PLACED ON MONITORS. ASSESSMENT COMPLETED. VSS AT THIS TIME. CALL LIGHT WITHIN REACH. FAMILY AT BEDSIDE. DR. ANAYA ROUNDED AND SPOKE WITH PT'S .
--- NOTE | 2020-05-31 11:55 | NUR ---
RIGHT GROIN DRESSING C/D/I. NO S/S OF HEMATOMA NOTED. CALL LIGHT WITHIN REACH. VSS AT THIS TIME. RIGHT WRIST Z BAND IN PLACE. NO BLEEDING/HEMATOMA NOTED. FAMILY AT BEDSIDE . NO NEEDS AT THIS TIME.
--- NOTE | 2020-05-31 12:13 | NUR ---
[facility] CALLED INTO [facility]IBI IN [facility]. SPOKE PHARMACIST BETO BY TELEPHONE.
--- NOTE | 2020-05-31 12:29 | NUR ---
RIGHT GROIN DRESSING C/D/I. NO S/S OF HEMATOMA NOTED. CALL LIGHT WITHIN REACH. VSS AT THIS TIME. FAMILY AT BEDSIDE.
--- NOTE | 2020-05-31 13:00 | NUR ---
RIGHT GROIN DRESSING C/D/I. NO S/S OF HEMATOMA NOTED. CALL LIGHT WITHIN REACH. VSS AT THIS TIME. RIGHT WRIST Z BAND IN PLACE. NO BLEEDING/HEMATOMA NOTED.
--- NOTE | 2020-05-31 13:30 | NUR ---
PT RESTING COMFORTABLY. VSS. RIGHT WRIST Z BAND AND RIGHT GROIN DRESSING IN PLACE. NO BLEEDING/HEMATOMA NOTED. CALL LIGHT WITHIN REACH. VSS AT THIS TIME.
--- NOTE | 2020-05-31 14:25 | NUR ---
2cc OF AIR REMOVED FROM Z BAND. NO BLEEDING/HEMATOMA NOTED. CALL LIGHT WITHIN REACH. VSS AT THIS TIME.
--- NOTE | 2020-05-31 14:30 | NUR ---
RIGHT GROIN DRESSING C/D/I. NO S/S OF HEMATOMA NOTED. CALL LIGHT WITHIN REACH. FAMILY AT BEDSIDE. HEAD OF BED INC TO 30 DEGREES. TOLERATED IT WELL. VSS AT THIS TIME. SET UP WITH SANDWICH TRAY AND DRINK. DENIES NAUSEA/PAIN.
--- NOTE | 2020-05-31 14:40 | NUR ---
3cc OF AIR REMOVED FROM Z BAND. NO BLEEDING/HEMATOMA NOTED. VSS. RIGHT GROIN DRESSING C/D/I. NO S/S OF HEMATOMA NOTED.
--- NOTE | 2020-05-31 14:55 | NUR ---
3cc OF AIR REMOVED FROM Z BAND. NO BLEEDING/HEMATOMA NOTED.
--- NOTE | 2020-05-31 15:10 | NUR ---
3cc OF AIR REMOVED FROM Z BAND. NO BLEEDING/HEMATOMA NOTED. CALL LIGHT WITHIN REACH. VSS AT THIS TIME.
--- NOTE | 2020-05-31 15:15 | NUR ---
Z BAND REMOVED AND DRESSING APPLIED. NO BLEEDING/HEMATOMA NOTED. RIGHT WRIST BRACE IN PLACE. RIGHT GROIN DRESSING C/D/I. NO S/S OF HEMATOMA NOTED. CALL LIGHT WITHIN REACH. FAMILY AT BEDSIDE. VSS.
--- NOTE | 2020-05-31 15:35 | NUR ---
PIV D/C'D WITH CATH TIP INTACT. TOLERATED WELL. PT INSTRUCTED TO GET UP AND DRESSED AT THIS TIME. AT BEDSIDE TO ASSIST.
--- NOTE | 2020-05-31 15:50 | NUR ---
DISCUSSED DISCHARGE INSTRUCTIONS WITH PT AND PT'S . THEY VOICED UNDERSTANDING. PT AMBULATED TO RESTROOM AND VOIDED WITHOUT DIFFICULTY. STEADY GAIT NOTED.
--- NOTE | 2020-05-31 15:55 | NUR ---
PT TAKEN DOWN TO VEHICLE BY WHEELCHAIR. NO S/S OF DISTRESS NOTED. ALL BELONGINGS AND PAPERWORK IN HAND. RIGHT WRIST DRESSING C/D/I. NO S/S OF HEMATOMA NOTED. RIGHT GROIN DRESSING C/D/I. NO S/S OF HEMATOMA NOTED.
--- NOTE | 2020-06-01 14:53 | HP ---
PATIENT: MINO CASTRO MEDICAL RECORD: [id number] ACCOUNT: [id number] LOCATION:[facility] : 65 ADMISSION DATE: 05/31/20 PCP: FELIPE SERNA MD HISTORY AND PHYSICAL EXAMINATION HISTORY OF PRESENT ILLNESS: A 54-year-old gentleman with history of hypertension, hyperlipidemia as well as diabetes mellitus, seen in the office initially for angina, found to have reversible ischemia in the inferior lateral leads. Continues to have angina despite medical therapy. He is being brought to laboratory helper for diagnostic angiography for delineation of anatomy. PAST MEDICAL HISTORY: Includes; 1. History of hypertension. 2. Hyperlipidemia. 3. Diabetes mellitus. MEDICATIONS: Include atorvastatin 80 every day, Plavix 75 every day, Edarbyclor 40/12.5 every day, Farxiga 5 mg every day, Lasix 80 daily, metformin 1 gram b.i.d., metoprolol 50 every day. PHYSICAL EXAMINATION: GENERAL: Pleasant, in no acute distress, appears stated age. HEENT: Normocephalic, atraumatic. NECK: No JVD or bruit. HEART: Regular. LUNGS: Good air excursion. ABDOMEN: Soft, nontender. EXTREMITIES: Pulse 2+ with no edema. IMPRESSION: Worsening class III angina with positive noninvasive findings. PLAN: Angiography, intervention based on the above. TRANSINT:[id number] Voice Confirmation ID: [id number] DOCUMENT ID: [id number] ROMMEL ANAYA MD at 1453 CC: [id number] DICTATION DATE: 05/31/20 0903 CHEMICAL TREATMENT PLANT TECHNICIAN: 05/31/20 1014 [facility] CLI 05/31/20 [address] [place] [address]
--- NOTE | 2020-06-01 14:53 | OP ---
PATIENT NAME: MINO CASTRO MEDICAL RECORD: [id number] :65 LOCATION:D.CAT ADMISSION DATE: SURGEON: ROMMEL ANAYA MD DATE OF OPERATION: 05/31/2020 PROCEDURE: Left heart catheterization, selective coronary angiography, right femoral artery approach. CATHETERS: A 5-Grenadian sheath, 5/4 left and right Amisha, 5/4 pig. The procedure was well tolerated. The patient returned to the palomo, sheath removed. ExoSeal device placed. FINDINGS: Left ventriculography 30-degree CAMPA view shows mild global hypokinesis, LV function probably lower limits of normal at 50%. CORONARY ANATOMY: LEFT MAIN: Left main is free of disease. LAD: LAD in the area of previous stenting is widely patent. No evidence of restenosis. No evidence of progression of pokagon disease. CIRCUMFLEX: Medium-sized circumflex, free of disease. RIGHT CORONARY ARTERY: Dominant right gives rise to PDA, just has 80% distal stenosis after takeoff of the PD, very discrete, correlating nicely with nuclear study. PLAN: Intervention of the right momentarily. DESCRIPTION OF PROCEDURE: A 5-Grenadian sheath was exchanged for a 6-Grenadian sheath. A hockey stick guiding catheter provided excellent guide catheter support followed by 300 cm Whisper wire was placed across tightly occluded right down this portion of vessel. Stent deployed was a 3.5 x 9 Sulaiman drug-eluting stent up to 14 atmospheres for 45 seconds. Final angiography shows excellent resolution, 80% stenosis, no significant residual. MICHELLE flow was 3 throughout the procedure. Sheath was closed with ExoSeal device. Plavix was loaded in the lab. TRANSINT:[id number] Voice Confirmation ID: [id number] DOCUMENT ID: [id number] ROMMEL ANAYA MD at 1453 CC: [id number] DICTATION DATE: 05/31/20 1128 WASH HOUSE SUPERVISOR: 05/31/20 1648 DEP CLI 05/31/20 [id number] [place] [address]
== END 2020-05-31 15:55 | disposition home or self-care (01) ==
LOC: D.CATH 07:35
PROVIDERS: ATTEND Internal Medicine Interventional Cardiology
DX: I25.119 Atherosclerotic heart disease of native coronary artery with unspecified angina pectoris (principal); I10 Essential (primary) hypertension; E78.5 Hyperlipidemia, unspecified; E11.9 Type 2 diabetes mellitus without complications; Z79.4 Long term (current) use of insulin; I25.2 Old myocardial infarction; R07.9 Chest pain, unspecified; R94.39 Abnormal result of other cardiovascular function study; Z72.0 Tobacco use
CPT/HCPCS: 93458; C9600

== ENCOUNTER 2021-01-05 12:30 | Inpatient (IN) | payer MEDICARE, BC ==
[~2021-01-05] VITALS: Ht 177.8 cm; Wt 93.9 kg
[~2021-01-05 12:30] MED LIST changes: +BAYER CHEWABLE81 MG PO; +HUMALOG 30100 UNITS/ SC; +K-TAB10 MEQ PO; +LASIX80 MG PO; +LEVEMIR IN100 UNITS/ SC; +NEURONTIN600 MG PO; +TOPROL XL50 MG PO; +TRIAMTERENE-HC1 EAC3 PO
[2021-01-05] MEDS ORDERED: LISINOPRIL5 MG PO (13:01)
[2021-01-05 13:20] LABS: BASOPHILS 0.2 % (0-2); EOSINOPHILS 3.1 % (0-7); HEMATOCRIT 38.9 % (42.0-54.0); HEMOGLOBIN 13.6 g/dL (13.5-17.5); IMMATURE GRANULOCYTES 0.3 % (0-5); LYMPHOCYTE ABS# 2.18 10x3/uL (1.32-3.57); LYMPHOCYTES 22.3 % (15-50); MCH 29.2 pg (26.0-34.0); MCV 83.7 fL (80.0-100.0); MEAN PLATELET VOLUME 9.4 fL (7.4-10.4); MONOCYTES 6.3 % (2-11); NEUTROPHIL ABS# 6.62 10x3/uL (1.78-5.38); NEUTROPHILS 67.8 % (40-80); PLATELET COUNT 349 10x3/uL (130-400); RBC 4.65 10x6/uL (4.20-6.10); RDW 13.7 % (11.5-14.5); WBC 9.8 10x3/uL (4.8-10.8)
[2021-01-05 13:27] LABS: ANION GAP 13.8 mmol/L (8-16); CALCIUM 9.1 mg/dL (8.5-10.1); CARBON DIOXIDE 24.9 mmol/L (21.0-32.0); CREATININE - SERUM 1.1 mg/dL (0.6-1.3); POTASSIUM - SERUM 3.7 mmol/L (3.5-5.1)
[2021-01-05 13:31] LABS: ALBUMIN 3.8 g/dL (3.4-5.0); BILIRUBIN - TOTAL 0.21 mg/dL (0.2-1.3); MAGNESIUM - SERUM 1.7 mg/dL (1.8-2.4); PROTEIN - SERUM 7.5 g/dL (6.4-8.2)
[2021-01-05 13:58] LABS: BILIRUBIN NEGATIVE (NEGATIVE); KETONE NEGATIVE (NEGATIVE); NITRITE NEGATIVE (NEGATIVE); UROBILINOGEN NORMAL mg/dL (< 2)
[2021-01-05 14:08] LABS: UDS - AMPHET NEGATIVE QUAL (NEGATIVE); UDS - BARB NEGATIVE QUAL (NEGATIVE); UDS - BENZO NEGATIVE QUAL (NEGATIVE); UDS - COCAINE NEGATIVE QUAL (NEGATIVE); UDS - OPIATE NEGATIVE QUAL (NEGATIVE); UDS - PCP NEGATIVE QUAL (NEGATIVE); UDS - THC NEGATIVE QUAL (NEGATIVE)
--- NOTE | 2021-01-05 14:50 | NUR ---
DR. FRANCISCO NOTIFIED AND SITTER IN LINE OF SIGHT. SITTER IN LINE OF SIGHT. NOTIFIED CHARGE NURSE AND ATTENDING IN REGARDS TO ASSESSMENTS FINDINGS. RESOURCES GIVEN TO PT AND SAFETY PLAN INTIATED.
--- NOTE | 2021-01-05 15:28 | NUR ---
SITTER AT BEDSIDE WITH PATIENT SINCE PLACED IN ED ROOM
--- NOTE | 2021-01-05 15:56 | NUR ---
1530 PIPERICILLIN INFUSION COMPLETED
--- NOTE | 2021-01-05 16:56 | NUR ---
PATIENT PLEASANT AND COOPERATIVE. RESTING QUIETLY WITH SITTER
--- NOTE | 2021-01-05 19:19 | NUR ---
PT RESTING ON BED, FAMILY MEMBER AT BEDSIDE. PT DENIES NEEDS AT THIS TIME. NS 100ML/HR INFUSING AT THIS TIME.
--- NOTE | 2021-01-05 20:45 | NUR ---
ZOSYN INFUSION COMPLETE. PT DENIES NEEDS AT THIS TIME.
--- NOTE | 2021-01-05 21:41 | NUR ---
FSBS 298
[2021-01-05 22:49] VITALS: BMI 29.7
[2021-01-06] VITALS (7 sets, daily range): BP systolic 100–150; BP diastolic 66–91; Ht 177.8 cm; Wt 93.9 kg
--- NOTE | 2021-01-06 00:39 | NUR ---
PT ARRIVED TO FLOOR VIA WHEELCHAIR, ACCOMPANINED BY SITTER AND STAFF MEMBER. PT STATED THAT HE DOESNT HAVE MUCH FEELING IN RIGHT TOES. 3RD AND 4TH TOE ARE NOTED TO BE RED, SWOLLEN AND BLISTER LIKE. PT WALKED TO BED, SITTER IS AT BEDSIDE. BED IN LOW POSITION WITH CALL MATIAS LIGHT IN REACH.
[2021-01-06 06:05] LABS: BASOPHILS 0.2 % (0-2); EOSINOPHILS 3.1 % (0-7); HEMATOCRIT 36.3 % (42.0-54.0); HEMOGLOBIN 12.3 g/dL (13.5-17.5); IMMATURE GRANULOCYTES 0.4 % (0-5); LYMPHOCYTE ABS# 1.48 10x3/uL (1.32-3.57); LYMPHOCYTES 18.3 % (15-50); MCH 28.3 pg (26.0-34.0); MCHC 33.9 g/dL (31.0-37.0); MCV 83.6 fL (80.0-100.0); MEAN PLATELET VOLUME 9.7 fL (7.4-10.4); MONOCYTES 6.6 % (2-11); NEUTROPHIL ABS# 5.77 10x3/uL (1.78-5.38); NEUTROPHILS 71.4 % (40-80); PLATELET COUNT 349 10x3/uL (130-400); RBC 4.34 10x6/uL (4.20-6.10); RDW 13.5 % (11.5-14.5); WBC 8.1 10x3/uL (4.8-10.8)
[2021-01-06 06:10] LABS: INR 0.99 (0.85-1.17); PROTIME 12.1 SECONDS (11.6-15.0)
--- NOTE | 2021-01-06 06:41 | NUR ---
PT IS RESTING IN BED. SITTER AT BEDSIDE. HAS NOT COMPLAINED OF ANY PAIN SINCE ARRIVAL TO FLOOR.
[2021-01-06 07:50] LABS: ALBUMIN 3.2 g/dL (3.4-5.0); ANION GAP 13.3 mmol/L (8-16); BILIRUBIN - TOTAL 0.34 mg/dL (0.2-1.3); CALCIUM 8.6 mg/dL (8.5-10.1); CARBON DIOXIDE 23.6 mmol/L (21.0-32.0); CREATININE - SERUM 1.1 mg/dL (0.6-1.3); MAGNESIUM - SERUM 1.7 mg/dL (1.8-2.4); PHOSPHOROUS 3.3 mg/dL (2.5-4.9); POTASSIUM - SERUM 3.9 mmol/L (3.5-5.1); PROTEIN - SERUM 6.6 g/dL (6.4-8.2)
--- NOTE | 2021-01-06 19:00 | NUR ---
BEDSIDE REPORT RECEIVED AND CARE OF PT ASSUMED. PT LYING IN LOW MADRID'S POSITION WATCHING TV. SITTER AT BEDSIDE. IV TO LEFT HAND PATENT WITH NS INFUSING AT 100 ML/HR. WILL MONITOR FOR NEEDS.
--- NOTE | 2021-01-06 21:58 | NUR ---
HS MEDICATIONS GIVEN. FSBS 465 THIS CHECK REQUIRING COVERAGE WITH 12 UNITS OF INSULIN PER SLIDING SCALE. PAGE PLACED FOR SWING DRIVER TO EVAL SLIDING SCALE.
--- NOTE | 2021-01-07 00:25 | NUR ---
INCREASED SLIDING SCALE TO INTERMEDIATE RESISTANCE PER ORDER FROM SANTIAGO [facility] APN.
[2021-01-07 01:25] VITALS: BP 109/66
[2021-01-07 05:34] LABS: BASOPHILS 0.3 % (0-2); EOSINOPHILS 3.7 % (0-7); HEMATOCRIT 34.5 % (42.0-54.0); HEMOGLOBIN 11.9 g/dL (13.5-17.5); IMMATURE GRANULOCYTES 0.3 % (0-5); LYMPHOCYTE ABS# 1.67 10x3/uL (1.32-3.57); LYMPHOCYTES 22.8 % (15-50); MCH 28.9 pg (26.0-34.0); MCHC 34.5 g/dL (31.0-37.0); MCV 83.7 fL (80.0-100.0); MEAN PLATELET VOLUME 9.2 fL (7.4-10.4); MONOCYTES 10.1 % (2-11); NEUTROPHIL ABS# 4.59 10x3/uL (1.78-5.38); NEUTROPHILS 62.8 % (40-80); PLATELET COUNT 291 10x3/uL (130-400); RBC 4.12 10x6/uL (4.20-6.10); RDW 13.7 % (11.5-14.5); WBC 7.3 10x3/uL (4.8-10.8)
[2021-01-07 05:47] VITALS: BP 105/67
[2021-01-07 06:00] LABS: ALBUMIN 3.1 g/dL (3.4-5.0); ANION GAP 10.2 mmol/L (8-16); BILIRUBIN - TOTAL 0.47 mg/dL (0.2-1.3); CALCIUM 8.5 mg/dL (8.5-10.1); CARBON DIOXIDE 27.4 mmol/L (21.0-32.0); CREATININE - SERUM 1.3 mg/dL (0.6-1.3); POTASSIUM - SERUM 3.6 mmol/L (3.5-5.1); PROTEIN - SERUM 6.4 g/dL (6.4-8.2)
[2021-01-07 09:04] VITALS: BP 114/75
--- NOTE | 2021-01-07 10:17 | NUR ---
IN BED. SITTER IN DOORWAY. PATIENT DENIES NEEDS AT THIS TIME. BED LOW POSITION, CALL LIGHT IN REACH. FREE FROM SIGNS OF DISTRESS. WILL CONTINUE TO MONITOR.
--- NOTE | 2021-01-07 12:38 | NUR ---
PATIENT SHOWERED, BACK IN BED. SITTER AT BEDSIDE. DENIES NEEDS AT THIS TIME.
[2021-01-07 12:43] VITALS: BP 130/76
[2021-01-07 16:35] VITALS: BP 122/74
--- NOTE | 2021-01-07 19:00 | NUR ---
FAMILIATER IS AT BEDSIDE.
--- NOTE | 2021-01-07 19:00 | NUR ---
BEDSIDE REPORT RECEIVED AND CARE OF PT ASSUMED. PT LYING IN LOW MADRID'S POSITION WATCHING TV. IV TO LEFT HAND PATENT WITH NS INFUSING AT 100 ML/HR. WILL MONITOR FOR NEEDS.
[2021-01-07 20:00] VITALS: BP 130/88
--- NOTE | 2021-01-07 21:00 | NUR ---
HS MEDICATIONS GIVEN. FSBS 323 THIS CHECK REQUIRING COVERAGE WITH 12 UNITS OF INSULIN PER SLIDING SCALE. WILL CONTINUE TO MONITOR FOR NEEDS.
[2021-01-08] VITALS: BP 119/69
[2021-01-08 04:00] VITALS: BP 97/57
[2021-01-08 07:28] LABS: BASOPHILS 0.3 % (0-2); EOSINOPHILS 3.8 % (0-7); HEMATOCRIT 35.1 % (42.0-54.0); HEMOGLOBIN 11.8 g/dL (13.5-17.5); IMMATURE GRANULOCYTES 0.4 % (0-5); LYMPHOCYTE ABS# 1.35 10x3/uL (1.32-3.57); LYMPHOCYTES 17.9 % (15-50); MCH 28.5 pg (26.0-34.0); MCHC 33.6 g/dL (31.0-37.0); MCV 84.8 fL (80.0-100.0); MEAN PLATELET VOLUME 9.4 fL (7.4-10.4); MONOCYTES 8.5 % (2-11); NEUTROPHIL ABS# 5.22 10x3/uL (1.78-5.38); NEUTROPHILS 69.1 % (40-80); PLATELET COUNT 307 10x3/uL (130-400); RBC 4.14 10x6/uL (4.20-6.10); RDW 13.8 % (11.5-14.5); WBC 7.6 10x3/uL (4.8-10.8)
[2021-01-08 07:56] LABS: ALBUMIN 3.1 g/dL (3.4-5.0); ANION GAP 10.5 mmol/L (8-16); BILIRUBIN - TOTAL 0.5 mg/dL (0.2-1.3); CALCIUM 8.4 mg/dL (8.5-10.1); CREATININE - SERUM 1.2 mg/dL (0.6-1.3); MAGNESIUM - SERUM 1.7 mg/dL (1.8-2.4); POTASSIUM - SERUM 3.5 mmol/L (3.5-5.1); PROTEIN - SERUM 6.5 g/dL (6.4-8.2)
[2021-01-08 08:00] VITALS: BP 152/86
[2021-01-08 12:00] VITALS: BP 124/72
[2021-01-08 15:00] VITALS: BP 139/82
--- NOTE | 2021-01-08 17:48 | NUR ---
PATIENT IN BED WITH IV INTACT. NO COMPLAINTS OR SIGNS OF DISTRESS. CALL LIGHT WITHIN REACH.
[2021-01-08 20:00] VITALS: BP 125/77
[2021-01-09] VITALS: BP 134/75
[2021-01-09 04:00] VITALS: BP 132/81
[2021-01-09 06:24] LABS: BILIRUBIN - TOTAL 0.28 mg/dL (0.2-1.3); CALCIUM 8.4 mg/dL (8.5-10.1); CARBON DIOXIDE 28.5 mmol/L (21.0-32.0); CREATININE - SERUM 1.1 mg/dL (0.6-1.3); MAGNESIUM - SERUM 1.7 mg/dL (1.8-2.4); POTASSIUM - SERUM 3.5 mmol/L (3.5-5.1); PROTEIN - SERUM 6.4 g/dL (6.4-8.2)
[2021-01-09 07:09] LABS: BASOPHILS 0.4 % (0-2); EOSINOPHILS 3.2 % (0-7); HEMATOCRIT 34.2 % (42.0-54.0); HEMOGLOBIN 11.4 g/dL (13.5-17.5); IMMATURE GRANULOCYTES 0.5 % (0-5); LYMPHOCYTE ABS# 1.64 10x3/uL (1.32-3.57); MCH 28.6 pg (26.0-34.0); MCHC 33.3 g/dL (31.0-37.0); MCV 85.7 fL (80.0-100.0); MEAN PLATELET VOLUME 9.8 fL (7.4-10.4); MONOCYTES 7.1 % (2-11); NEUTROPHIL ABS# 5.66 10x3/uL (1.78-5.38); NEUTROPHILS 68.8 % (40-80); PLATELET COUNT 301 10x3/uL (130-400); RBC 3.99 10x6/uL (4.20-6.10); RDW 13.9 % (11.5-14.5); WBC 8.2 10x3/uL (4.8-10.8)
[2021-01-09 10:27] VITALS: BP 149/89
--- NOTE | 2021-01-09 10:46 | NUR ---
Nutrition follow-up: Diet order: consistent CHO with Raul BID PO Intake 75-100% of all meals Labs reviewed; glucose under poor to fair control at this time Wt: 207# Loose stools reported PO intake good at this time Prasanna continue to provide food choices and honor food preferences. May need to adjust insulin regimen due to poorly control glucose; change to high resistance SS. Follow-up: 01/15/21
--- NOTE | 2021-01-09 13:00 | NUR ---
PATIENT IV RESTARTED IN RIGHT FA BY STUDENT AND INSTRUCTORS X 1 STICK 20 G. PATIENT TOLERATED WITH SMALL AMOUNT OF PAIN.
--- NOTE | 2021-01-09 13:17 | PN ---
PATIENT:MINO CASTRO MEDICAL RECORD: [id number] LOCATION:D.MS [facility] ADMISSION DATE: 01/05/21 PROGRESS NOTE DATE OF SERVICE: 01/08/2021 SUBJECTIVE: The patient's case was discussed with staff. He has no new complaint. OBJECTIVE: The patient has a depressed mood, but is adamant that he has no thoughts of harming himself. He says that he was upset when he made the comments this weekend and that he really did not mean them. He has never attempted to hurt himself. He speaks about the advent implications of suicide and how it would affect the people that he loves and his family and assures me that he will not hurt himself. I feel satisfied with this, especially since he is also telling me that he is very willing to go to outpatient therapy. ASSESSMENT: Major depression. PLAN: Current medicine should be continued. The patient may be discharged when medically stable and he would like to have followup with psychiatrist here in [place]. I would recommend either Dr. Robison or Dr. Del Rio. TRANSINT:[id number] Voice Confirmation ID: [id number] DOCUMENT ID: [id number] RICA FRANCISCO MD at 1317 CC: [id number] DICTATION DATE: 01/08/21 1606 VALUATION MANAGER: 01/08/21 1732 ADM IN [place] [id number] [place] [address]
[2021-01-09 13:58] VITALS: BP 151/83
[2021-01-09 18:31] VITALS: BP 129/90
--- NOTE | 2021-01-09 18:45 | NUR ---
PATIENT RECIEVED DC INSTRUCTIONS. VERBALIZED UNDERSTANDING. NO QUESTIONS AT THIS TIME. IV REMOVED WITH CATH TIP INTACT. FAMILY AT BEDSIDE. ESCORTED OUT OF HOSPITAL VIA WC WITH PERSONAL BELONGINGS BY DISTILLERY MILLER TO PRIVATE VEHICLE.
== END 2021-01-09 18:49 | disposition home or self-care (01) | DRG 638 ==
LOC: D.ER 12:30 → D.EDHOLD 15:51 → D.MS 15:51
PROVIDERS: Family Medicine; ADMIT Emergency Medicine; ATTEND Emergency Medicine
PROC: 0H9MXZZ Drainage of Right Foot Skin, External Approach (ICD-10-PCS; principal; 2021-01-07)
DX: E11.621 Type 2 diabetes mellitus with foot ulcer (principal); R45.851 Suicidal ideations; F32.2 Major depressive disorder, single episode, severe without psychotic features; I10 Essential (primary) hypertension; E78.5 Hyperlipidemia, unspecified; E83.42 Hypomagnesemia; L03.031 Cellulitis of right toe; L97.511 Non-pressure chronic ulcer of other part of right foot limited to breakdown of skin; S90.821A Blister (nonthermal), right foot, initial encounter; Z72.0 Tobacco use; K21.9 Gastro-esophageal reflux disease without esophagitis